=== PATIENT | female | born 1990 | race Hispanic/Latino ===

== ENCOUNTER 2018-04-27 08:07 | Emergency (ER) | payer OTHER ==
[2018-04-27 08:54] LABS: APPEARANCE,URINE Clear (CLEAR); BILIRUBIN,URINE Negative (NEGATIVE); COLOR,URINE Yellow (YELLOW); GLUCOSE, URINE (UA) Negative (NEGATIVE); KETONES,URINE Negative (NEGATIVE); LEUKOCYTE ESTERASE ,URINE Negative (NEGATIVE); NITRATE,URINE Negative (NEGATIVE); OCCULT BLOOD,URINE Moderate (NEGATIVE); PH,URINE 5.5 (5.0-8.0); PROTEIN,URINE Negative (NEGATIVE)
[2018-04-27 08:56] LABS: HCG,QUAL RESULT NEGATIVE (NEGATIVE)
[2018-04-27 09:15] LABS: BACTERIA,URINE Few /HPF (None Seen); MUCUS,URINE Moderate LPF (None Seen); SQUAMOUS EPITHELIAL CELL,UR Few /HPF (0-2); WBC,URINE 0-1 /HPF (0-1)
[2018-04-27] MEDS ORDERED: KETOROLAC TROMETHAMINE 30MG/ML ONE (09:51)
== END 2018-04-27 10:58 | disposition home or self-care (01) ==
LOC: EDH 08:07
DX: S00.83XA Contusion of other part of head, initial encounter (principal); S70.12XA Contusion of left thigh, initial encounter; S30.811A Abrasion of abdominal wall, initial encounter; N93.9 Abnormal uterine and vaginal bleeding, unspecified; Z98.51 Tubal ligation status; R04.0 Epistaxis; V53.6XXA Passenger in pick-up truck or van injured in collision with car, pick-up truck or van in traffic accident, initial encounter; Y93.89 Activity, other specified; Y92.89 Other specified places as the place of occurrence of the external cause; Y99.8 Other external cause status
CPT/HCPCS: 81001; 81025; 96372; 99284; J1885

== ENCOUNTER 2018-12-06 19:16 | Emergency (ER) | payer OTHER | END 2018-12-06 20:19 | disposition home or self-care (01) | LOC: EDH 19:16 | DX: J30.9 Allergic rhinitis, unspecified (principal); F41.9 Anxiety disorder, unspecified; F31.9 Bipolar disorder, unspecified; I10 Essential (primary) hypertension; E07.9 Disorder of thyroid, unspecified; F43.10 Post-traumatic stress disorder, unspecified; Z98.51 Tubal ligation status; Z72.0 Tobacco use | CPT/HCPCS: 99282 ==

== ENCOUNTER 2019-10-01 03:52 | Emergency (ER) | payer BC, OTHER ==
[2019-10-01] MEDS ORDERED: ONDANSETRON HCL 4 MG/2 ML VIAL ONE (04:03)
[2019-10-01 04:04] LABS: BASOPHILS % (AUTO) 0.2 % (0.0-5.0); EOSINOPHILS % (AUTO) 2.5 % (0.0-8.0); HEMATOCRIT 38.4 % (36-48); MEAN CORPUSCULAR HEMOGLOBIN 29.9 pg (27.0-33.0); MEAN CORPUSCULAR HGB CONC 33.7 g/dL (32.0-36.0); MEAN CORPUSCULAR VOLUME 88.9 fL (79-99); MONOCYTES % (AUTO) 4.7 % (3.0-13.0); NEUTROPHILS % (AUTO) 73.6 % (40.0-77.0); PLATELET COUNT (AUTO) 311 K/uL (130-400); RED BLOOD CELL COUNT(AUTO) 4.32 MIL/uL (4.00-5.50); WHITE BLOOD COUNT (AUTO) 13.9 K/uL (4.8-10.8)
[2019-10-01] MEDS ORDERED: FAMOTIDINE/PF 20 MG/2 ML VIAL IV ONE (04:04)
[2019-10-01] MEDS ORDERED: SODIUM CHLORIDE 0.9% 1000ML 1,000 ML IV ONE (04:04)
[2019-10-01 04:14] LABS: POTASSIUM 3.6 mmol/L (3.5-5.1)
[2019-10-01 04:19] LABS: ALBUMIN 3.2 g/dL (3.5-5.0); BILIRUBIN,TOTAL 0.2 mg/dL (0.2-1.0); TOTAL PROTEIN, SERUM 7.1 g/dL (6.0-8.3)
[2019-10-01] MEDS ORDERED: MAG HYDROX/AL HYDROX/SIMETH ES 30 ML SUSP UDCUP ONE (05:09)
[2019-10-01] MEDS ORDERED: LIDOCAINE HCL 2% VISCOUS 15 ML UDCUP ONE (05:09)
[2019-10-01 05:36] LABS: APPEARANCE,URINE Clear (CLEAR); BILIRUBIN,URINE Negative (NEGATIVE); COLOR,URINE Yellow (YELLOW); GLUCOSE, URINE (UA) Negative (NEGATIVE); KETONES,URINE Negative (NEGATIVE); LEUKOCYTE ESTERASE ,URINE Negative (NEGATIVE); NITRATE,URINE Negative (NEGATIVE); OCCULT BLOOD,URINE Negative (NEGATIVE); PROTEIN,URINE Negative (NEGATIVE)
== END 2019-10-01 05:53 | disposition home or self-care (01) ==
LOC: EDH 03:52
DX: K29.70 Gastritis, unspecified, without bleeding (principal); I10 Essential (primary) hypertension; K21.9 Gastro-esophageal reflux disease without esophagitis
CPT/HCPCS: 36415; 80053; 81003; 81025; 83690; 85025; 96361; 96374; 96375; 99285; J2405; J3490; J7030

== ENCOUNTER 2020-02-24 13:17 | Emergency (ER) | payer BC | END 2020-02-24 14:31 | disposition home or self-care (01) | LOC: EDH 13:17 | DX: J06.9 Acute upper respiratory infection, unspecified (principal); I10 Essential (primary) hypertension; K21.9 Gastro-esophageal reflux disease without esophagitis ==

== ENCOUNTER 2020-05-05 22:26 | Emergency (ER) | payer BC | END 2020-05-06 00:05 | disposition home or self-care (01) | LOC: EDH 22:26 | DX: Z77.098 Contact with and (suspected) exposure to other hazardous, chiefly nonmedicinal, chemicals (principal); I10 Essential (primary) hypertension; K21.9 Gastro-esophageal reflux disease without esophagitis; Z79.899 Other long term (current) drug therapy | CPT/HCPCS: 71045 ==

== ENCOUNTER 2021-11-12 20:19 | Emergency (ER) | payer BC, OTHER ==
[~2021-11-12] VITALS: Ht 162.6 cm; Wt 99.8 kg
[2021-11-12] MEDS ORDERED: ONDANSETRON 4MG INJ IVP ONE (21:00)
[2021-11-12] MEDS ORDERED: FAMOTIDINE 20MG VIAL IV ONE (21:00)
[2021-11-12] MEDS ORDERED: 0.9%NACL 1000ML 1,000 ML IV ONE (21:00)
[2021-11-12] MEDS ORDERED: PANTOPRAZOLE 40 MG/VIAL IVP ONE (21:00)
[2021-11-12] MEDS ORDERED: METOCLOPRAMIDE 10 MG/2 ML VIAL IVP ONE (21:00)
[2021-11-12 21:06] LABS: BASOPHILS % (AUTO) 0.2 % (0.0-5.0); EOSINOPHILS % (AUTO) 1.4 % (0.0-8.0); HEMATOCRIT 37.2 % (36-48); MEAN CORPUSCULAR HEMOGLOBIN 30.6 pg (27.0-33.0); MEAN CORPUSCULAR HGB CONC 33.1 g/dL (32.0-36.0); MEAN CORPUSCULAR VOLUME 92.5 fL (79-99); MONOCYTES % (AUTO) 6.1 % (3.0-13.0); PLATELET COUNT (AUTO) 319 K/uL (130-400); RED BLOOD CELL COUNT(AUTO) 4.02 MIL/uL (4.00-5.50); WHITE BLOOD COUNT (AUTO) 13.1 K/uL (4.8-10.8)
[2021-11-12 21:08] LABS: APPEARANCE,URINE Cloudy (CLEAR); BILIRUBIN,URINE Negative (NEGATIVE); COLOR,URINE Yellow (YELLOW); GLUCOSE, URINE (UA) Negative (NEGATIVE); KETONES,URINE Trace mg/dL (NEGATIVE); LEUKOCYTE ESTERASE ,URINE Trace (NEGATIVE); NITRATE,URINE Negative (NEGATIVE); OCCULT BLOOD,URINE Large (NEGATIVE); PH,URINE 5.5 (5.0-8.0); PROTEIN,URINE Trace mg/dL (NEGATIVE); UROBILINOGEN,URINE 0.2 mg/dL (0.2-1.0)
[2021-11-12 21:16] LABS: BACTERIA,URINE Few /HPF (None Seen); MUCUS,URINE Moderate LPF (None Seen); RBC,URINE 26-50 /HPF (0-1); SQUAMOUS EPITHELIAL CELL,UR Moderate /HPF (0-2)
[2021-11-12 21:17] LABS: CREATININE 1.1 mg/dL (0.5-1.5)
[2021-11-12 21:21] LABS: ALBUMIN 3.8 g/dL (3.5-5.0); BILIRUBIN,TOTAL 0.3 mg/dL (0.2-1.0); TOTAL PROTEIN, SERUM 7.8 g/dL (6.0-8.3)
[2021-11-12] MEDS ORDERED: PANT40TA PO (21:55)
[2021-11-12] MEDS ORDERED: DICY20TA2 PO (21:55)
[2021-11-12] MEDS ORDERED: ONDA4TAB10 PO (21:55)
[2021-11-12] MEDS ORDERED: METO-296 PO (21:55)
[2021-11-12 22:07] VITALS: BP 133/72
== END 2021-11-12 23:30 | disposition home or self-care (01) ==
LOC: EDH 20:19
DX: K29.70 Gastritis, unspecified, without bleeding (principal); E86.9 Volume depletion, unspecified; Z79.899 Other long term (current) drug therapy; Z98.51 Tubal ligation status
CPT/HCPCS: 36415; 80053; 81001; 83690; 85025; 96374; 96375; 99284; C9113; J2405; J2765; J3490

== ENCOUNTER 2025-01-31 07:26 | Emergency (ER) | payer SELFPAY ==
[~2025-01-31] VITALS: Ht 162.6 cm; Wt 109.0 kg
[~2025-01-31 07:26] MED LIST: DICY20TA2 PO; METO-296 PO; ONDA-243 PO; PANT40TA PO
[2025-01-31 07:31] VITALS: BP 127/82; PULSE 102; RESP 18; TEMP 97.8; O2SAT 96
[2025-01-31] MEDS ORDERED: LORA-726 PO (07:52)
[2025-01-31] MEDS ORDERED: FLUT16H NS (07:52)
--- NOTE | 2025-01-31 07:52 | ERN ---
General Chief Complaint: Cough Stated Complaint: COUGH X 3 WEEKS Time Seen by MD: 07:30 Source: patient History of Present Illness Initial Comments IN HIS IS A 34-YEAR-OLD FEMALE COMING IN TO BE EVALUATED FOR COUGH. PER PATIENT SHE HAS BEEN HAVING A COUGH FOR THREE WEEKS. NO FEVER OR CHILLS. PATIENT HAD NOT BEEN SEEN BY HER PCP. Allergies: Coded Allergies: No Known Drug Allergies (Unverified Allergy, Unknown, 11/12/21) Home Meds Active Scripts Metoclopramide HCl (Reglan) 10 Mg Tablet, 10 MG PO TIDP, #20 TAB 0 Refills Prov:LAUREEN PACHECO MD 11/12/21 Ondansetron (Ondansetron Odt) 4 Mg Tab.rapdis, 4 MG PO Q6HPRN, #20 TAB 0 Refills Prov:LAUREEN PACHECO MD 11/12/21 Pantoprazole Sodium (Protonix) 40 Mg Tablet.dr, 40 MG PO DAILY, #10 TAB 0 Refills Prov:LAUREEN PACHECO MD 11/12/21 Dicyclomine HCl (Bentyl) 20 Mg Tab, 20 MG PO Q6HPRN, #20 TAB 0 Refills Prov:LAUREEN PACHECO MD 11/12/21 Past Medical History Past Medical History: Gallstones, Hypertension, Hyperthyroid, Other Medical History Other: GALLSTONES Past Surgical History: None Social History Social History: Drugs, ETOH Female( History) LMP: Jan 20, 2025 ROS Dictation CONSTITUTIONAL: NO CHILLS, NO FEVER, NO WEAKNESS, NO DIAPHORESIS, NO MALAISE. HEAD/FACE: NO SIGNS OF TRAUMA. EENT: NO EYE PAIN, NO BLURRED VISION, NO TEARING, NO DOUBLE VISION, NO EAR PAIN, NO EAR DISCHARGE, NO NOSE PAIN, NASAL CONGESTION, NO THROAT PAIN, NO THROAT SWELLING, NO MOUTH PAIN. RESPIRATORY: NO COUGH, NO ORTHOPNEA, NO SOB, NO STRIDOR, NO WHEEZING. CARDIOVASCULAR: NO CHEST PAIN, NO EDEMA, NO PALPITATIONS, NO SYNCOPE. GASTROINTESTINAL/ABDOMINAL: NO ABDOMINAL PAIN, NO CONSTIPATION, NO DIARRHEA, NO NAUSEA, NO VOMITING. GENITOURINARY: NO ABNORMAL DISCHARGE, NO DYSURIA, NO FREQUENT URINATION, NO HEMATURIA. NO COMPLAINTS OF PAIN IN THE GENITALS. MUSCULOSKELETAL: NO BACK PAIN, NO GOUT, NO JOINT PAIN, NO JOINT SWELLING, NO MUSCLE PAIN, NO MUSCLE STIFFNESS, NO NECK PAIN. INTEGUMENTARY: NO CHANGE IN COLOR, NO CHANGE IN HAIR/NAILS, NO DRYNESS, NO LESION, NO LUMPS, NO RASH. NEUROLOGICAL/PSYCH: NO ANXIETY, NOT DEPRESSED, NO EMOTIONAL PROBLEM, NO HEADACHE, NO NUMBNESS, NO PRE-EXISTING DEFICIT, NO HISTORY OF SEIZURES, NO TREMORS, NO WEAKNESS. HEMATOLOGIC/LYMPHATIC: NOT ANEMIC, NO HISTORY OF BLOOD CLOTS, NO APPARENT BLEEDING, NO BRUISING, GLANDS NOT SWOLLEN. ALL SYSTEMS NEGATIVE, EXCEPT NOTED. Physical Exam Physical Exam Dictation VITAL SIGNS: REVIEWED. GENERAL APPEARANCE: ALERT, ORIENTED X3, NO ACUTE DISTRESS, OBESE. HEAD AND FACE: NON-TRAUMATIC. EYES: PERRL, PINK CONJUNCTIVAS, EYELID NO TRAUMA, ANTERIOR CHAMBER CLEAR. EARS: PINNAS INTACT AND NO SIGNS OF TRAUMA OR ERYTHEMA. EAR CANALS CLEAR AND NO DISCHARGE. TMS NO ERYTHEMA. NOSE: NO DISCHARGE, NO BLEEDING. BILATERAL NASAL TURBINATE SWELLING OROPHARYNX: MOUTH NORMAL, TEETH NO CARIES, TONGUE PINK. PHARYNX CLEAR, NO ERYTHEMA. TONSILS NO EXUDATES, NO ABSCESSES NOTED. MUCOUS MEMBRANE MOIST. NECK: SUPPLE, NON-TENDER, NO THYROMEGALY, NO MASSES, NO JVD, NO BRUITS. BREAST: DEFERRED. CHEST: NO TENDERNESS, NO CREPITUS, NO PARADOXICAL MOVEMENT, NO RETRACTIONS. LUNGS: CLEAR, WELL-VENTILATED, SYMMETRIC, NO RALES, NO WHEEZING, NO RHONCHI, NO STRIDOR, GOOD BREATH SOUNDS BILATERALLY. HEART: REGULAR RATE, REGULAR RHYTHM, NO MURMUR, NO GALLOPS. VASCULAR: NO PERIPHERAL EDEMA. ABDOMEN: SOFT, POSITIVE BOWEL SOUNDS, NONDISTENDED, NO GUARDING, NONTENDER, NO REBOUND, NO MASSES NO HEPATOMEGALY, NO SPLENOMEGALY, NO MANUEL'S SIGN, NO HERNIAS. RECTAL: DEFERRED. GENITAL: DEFERRED. NEUROLOGICAL: NORMAL SPEECH, GROSS MOTOR FUNCTION INTACT, GROSS SENSORY FUNCTION INTACT. MUSCULOSKELETAL: NECK NONTENDER, FULL RANGE OF MOTION, BACK NONTENDER, FULL RANGE OF MOTION. EXTREMITIES: NONTENDER, FULL RANGE OF MOTION. SKIN: COLOR PINK, DRY, NO TURGOR, NO RASH, NO LACERATIONS, NO ABRASIONS, NO CONTUSIONS. LYMPHATICS: DEFERRED. Results Laboratory and Microbiology Labs Reviewed?: Yes MDM MDM: DIFFERENTIAL DIAGNOSIS: SINUSITIS, COUGH, URI, PATIENT IS A 34-YEAR-OLD FEMALE COMING IN TO BE EVALUATED FOR COUGH. PATIENT STATES THAT THE COUGH HAS BEEN ONGOING FOR THREE WEEKS. ON PHYSICAL EXAM LUNGS ARE CLEAR NASAL TURBINATE SWELLING BILATERAL OROPHARYNGEAL COBBLESTONING SUGGESTIVE OF SINUSITIS. PATIENT WILL BE DISCHARGED WITH A DIAGNOSIS OF SINUSITIS I DID ADVISED HER APPROPRIATE FOLLOW UP WITH PCP AND OR ENT FOR LONG- TERM MANAGEMENT. ED Course Vital Signs Date Time Temp Pulse Resp B/P (MAP) Pulse Ox O2 Delivery O2 Flow Rate FiO2 01/31/25 07:31 97.9 102 18 127/82 96 Room Air* 0 21 01/31/25 07:27 97.9 102 20 127/82 96 Room Air 0 DX & DISP Disposition: Discharge Departure Impression: Primary Impression: Sinusitis Condition: Stable Scripts Loratadine/Pseudoephedrine (Loratadine-D 12 Hour Tablet) 5 Mg-120 Mg Tab.er.12h 1 TAB PO BID for 5 Days, #10 TAB 0 Refills Prov: SHANNON CRAIG MD 01/31/25 Fluticasone Propionate (Flonase Nasal [place]) 50 Mcg/Actuation [place] 2 SPRAY NS DAILY, #16 GM 0 Refills Prov: SHANNON CRAIG MD 01/31/25 Additional Instructions: FOLLOW-UP WITH PRIMARY CARE PROVIDER IN 1 TO 2 DAYS. TAKE MEDICATIONS DIRECTED HERE IN THE EMERGENCY ROOM. OKAY TO CONTINUE HOME MEDICATIONS UNLESS OTHERWISE DISCUSSED DURING YOUR VISIT IN THE EMERGENCY ROOM TODAY. RETURN TO YOUR NEAREST EMERGENCY ROOM IF SYMPTOMS WORSEN OR IF THERE IS NO IMPROVEMENT. CALL 911 IF YOU NEED IMMEDIATE ASSISTANCE. TAKE TYLENOL [id number] NEEDED AND IF NO CONTRAINDICATIONS ARE PRESENT. INCREASE ORAL HYDRATION. A WOUND CULTURE OR URINE CULTURE WAS ORDERED HERE IN THE EMERGENCY ROOM DEPARTMENT PLEASE FOLLOW-UP WITH PRIMARY CARE PROVIDER AND ADVISE THEM TO GET REPEAT PORTS FROM OUR FACILITY. IF YOU HAD ANY LISA WRAP/SPLINTS THAT WERE APPLIED HERE, PLEASE DO NOT REMOVE THEM UNTIL YOU SEE YOUR PRIMARY CARE OR SPECIALTY. REFERRALS: Referrals: NONE (PCP) LUIZA BHATT MD,LOCO Mendez MD Time of Disposition: 07:50 SHANNON CRAIG MD Jan 31, 2025 07:52
== END 2025-01-31 08:09 | disposition home or self-care (01) ==
LOC: EDH 07:26
DX: J32.9 Chronic sinusitis, unspecified (principal); I10 Essential (primary) hypertension; E03.9 Hypothyroidism, unspecified; Z79.899 Other long term (current) drug therapy
CPT/HCPCS: 99283

== ENCOUNTER 2025-11-07 10:11 | Inpatient (IN) | payer SELFPAY ==
[~2025-11-07] VITALS: Ht 162.6 cm; Wt 110.0 kg
[2025-11-07] VITALS (21 sets, daily range): BP systolic 103–135; BP diastolic 47–79; PULSE 77–97; RESP 18–22; TEMP 97.1–98.2; O2SAT 99
[~2025-11-07 10:11] MED LIST changes: +FLUT16H NS; +LORA-726 PO
--- NOTE | 2025-11-07 10:25 | ERN ---
ED Note History of Present Illness Stated Complaint: ABDOMINAL PAIN Chief Complaint: Abdominal Pain Time Seen by MD: 10:15 Dictation: PATIENT IS A 35-YEAR-OLD FEMALE COMING IN TODAY WITH INTERMITTENT AND ACHY RIGHT LOWER QUADRANT PAIN TENDERNESS WITH FEVER CHILLS NAUSEA FOR THE LAST 7-8 DAYS. NO CHANGE IN URINATION NO FLANK PAIN. SHE STATES SHE SAW HER PRIMARY CARE DOCTOR LAST WEEK SUNDAY AND HE ORDERED AN ULTRASOUND OF HER ABDOMEN HOWEVER SHE NEVER GOT THE RESULTS ON-CALL. HE DID NOT GIVE HER ANYTHING FOR PAIN. Allergies: Coded Allergies: No Known Drug Allergies (Unverified Allergy, Unknown, 11/12/21) Home Meds Active Scripts Loratadine/Pseudoephedrine (Loratadine-D 12 Hour Tablet) 5 Mg-120 Mg Tab.er.12h, 1 TAB PO BID for 5 Days, #10 TAB 0 Refills Prov:SHANNON CRAIG MD 01/31/25 Fluticasone Propionate (Flonase Nasal [place]) 50 Mcg/Actuation [place], 2 SPRAY NS DAILY, #16 GM 0 Refills Prov:SHANNON CRAIG MD 01/31/25 Metoclopramide HCl (Reglan) 10 Mg Tablet, 10 MG PO TIDP, #20 TAB 0 Refills Prov:LAUREEN PACHECO MD 11/12/21 Ondansetron (Ondansetron Odt) 4 Mg Tab.rapdis, 4 MG PO Q6HPRN, #20 TAB 0 Refills Prov:LAUREEN PACHECO MD 11/12/21 Pantoprazole Sodium (Protonix) 40 Mg Tablet.dr, 40 MG PO DAILY, #10 TAB 0 Refills Prov:LAUREEN PACHECO MD 11/12/21 Dicyclomine HCl (Bentyl) 20 Mg Tab, 20 MG PO Q6HPRN, #20 TAB 0 Refills Prov:LAUREEN PACHECO MD 11/12/21 Past Medical History Past Medical History: Gallstones, Hypertension, Hyperthyroid, Other Additional Past Medical Hx: GALLSTONES Surgical History: None Social History: Drugs, ETOH RN Note Reviewed/Agreed w/PFSH: Yes (CONSTITUTIONAL: NEGATIVE EXCEPT FOR HPIHEAD/FACE: NEGATIVE EXCEPT FOR HPIEENT: NEGATIVE EXCEPT FOR HPIRESPIRATORY: NEGATIVE EXCEPT FOR HPIGASTROINTESTINAL/ABDOMINAL: NEGATIVE EXCEPT FOR HPIGENITOURINARY: NEGATIVE EXCEPT FOR HPIMUSCULOSKELETAL: NEGATIVE EXCEPT FOR HPIINTEGUMENTARY: NEGATIVE EXCEPT FOR HPINEUROLOGICAL/PSYCH: NEGATIVE EXCEPT FOR HPIHEMATOLOGIC/LYMPHATIC: NEGATIVE EXCEPT FOR HPIALL SYSTEMS NEGATIVE, EXCEPT NOTED ABOVE.13 POINT REVIEW OF SYSTEMS ASSESSED AND ALL NEGATIVE EXCEPT FOR ABOVE.) Review of System Dictation CONSTITUTIONAL: NEGATIVE EXCEPT FOR HPI HEAD/FACE: NEGATIVE EXCEPT FOR HPI EENT: NEGATIVE EXCEPT FOR HPI RESPIRATORY: NEGATIVE EXCEPT FOR HPI GASTROINTESTINAL/ABDOMINAL: NEGATIVE EXCEPT FOR HPI RIGHT LOWER QUADRANT PAIN WITH NAUSEA GENITOURINARY: NEGATIVE EXCEPT FOR HPI MUSCULOSKELETAL: NEGATIVE EXCEPT FOR HPI INTEGUMENTARY: NEGATIVE EXCEPT FOR HPI NEUROLOGICAL/PSYCH: NEGATIVE EXCEPT FOR HPI HEMATOLOGIC/LYMPHATIC: NEGATIVE EXCEPT FOR HPI ALL SYSTEMS NEGATIVE, EXCEPT NOTED ABOVE. 13 POINT REVIEW OF SYSTEMS ASSESSED AND ALL NEGATIVE EXCEPT FOR ABOVE. Initial Vital Sign VS Vital Signs Date Time Temp Pulse Resp B/P (MAP) Pulse Ox O2 Delivery O2 Flow Rate FiO2 11/07/25 10:13 98.1 111 20 133/81 98 Room Air 11/07/25 11:49 0 21 Physical Exam Dictation VITAL SIGNS REVIEWED GENERAL APPEARANCE: ALERT, ORIENTED X 3, N MODERATE ACUTE DISTRESS, WELL DEVELOPED, NOURISHED. OBESE HEAD AND FACE: NON-TRAUMATIC. EYES: PERRL, PINK CONJUNCTIVAS, EYELID NO TRAUMA, ANTERIOR CHAMBER WITH ARCUS SENILIS. EARS: PINNAS INTACT AND NO SIGNS OF TRAUMA OR ERYTHEMA EAR CANALS CLEAR AND NO DISCHARGE TM NO ERYTHEMA NOSE: NO DISCHARGE, NO BLEEDING. OROPHARYNX: MOUTH NORMAL, TONGUE PINK, PHARYNX CLEAR,NO ERYTHEMA, TONSILS NO EXUDATES, NO ABSCESSES NOTED, MUCOUS MEMBRANE MOIST NECK: SUPPLE, NON-TENDER, NO THYROMEGALY, NO MASSES, NO JVD, NO BRUITS BREAST:DEFERRED CHEST:NO TENDERNESS, NO CREPITUS, NO PARADOXICAL MOVEMENT, NO RETRACTIONS LUNGS:CLEAR, WELL-VENTILATED, SYMMETRIC, NO RALES, NO WHEEZING, NO RHONCHI, NO STRIDOR, GOOD BREATH SOUNDS BILATERALLY HEART: REGULAR RATE, REGULAR RHYTHM, NO MURMUR, NO GALLOPS VASCULAR: NO PERIPHERAL EDEMA, A RIGHT LOWER QUADRANT PAIN WITH REBOUND TENDERNESS. NEGATIVE CVAT BILATERALLY RECTAL: DEFERRED GENITAL: DEFERRED NEUROLOGICAL: NORMAL SPEECH, MOTOR FUNCTION INTACT, SENSORY FUNCTION INTACT MUSCULOSKELETAL: NECK NONTENDER, FULL RANGE OF MOTION, BACK NONTENDER, FULL RANGE OF MOTION, EXTREMITIES: NONTENDER, FULL RANGE OF MOTION SKIN: COLOR PINK, DRY, NO TURGOR, NO RASH, NO LACERATIONS, NO ABRASIONS, NO CONTUSIONS. LYMPHATIC: DEFERRED Results (Laboratory/Radiology) Laboratory/Radiology Laboratory Tests Test 11/07/25 10:20 11/07/25 10:30 Urine Color YELLOW (YELLOW) Urine Appearance CLEAR (CLEAR) Urine pH 5.5 (5.0-8.0) Urine Specific [place] 1.024 (1.001-1.031) Urine Protein 10 mg/dL (NEGATIVE) H Urine Glucose (UA) NEGATIVE mg/dL (NEGATIVE) Urine Ketones NEGATIVE mg/dL (NEGATIVE) Urine Occult Blood SMALL (NEGATIVE) H Urine Nitrate NEGATIVE (NEGATIVE) Urine Bilirubin NEGATIVE mg/dL (NEGATIVE) Urine Urobilinogen 0.2 mg/dL (0.2-1.0) Urine Leukocyte Esterase NEGATIVE Shaun/uL Urine RBC 2-5 /HPF (0-1) H Urine WBC 0-1 /HPF (0-1) Urine Squamous Epithelial Cells RARE /HPF (0-2) Urine Bacteria RARE /HPF (None Seen) White Blood Count 18.7 K/uL (4.8-10.8) H Red Blood Count 4.17 MIL/uL (4.00-5.50) Hemoglobin 12.2 g/dL (12.0-16.0) Hematocrit 37.5 % (36-48) Mean Corpuscular Volume 89.9 fL (79-99) Mean Corpuscular Hemoglobin 29.3 pg (27.0-33.0) Mean Corpuscular Hemoglobin Concent 32.5 g/dL (32.0-36.0) Red Cell Distribution Width 12.5 % (11.0-15.5) Platelet Count 249 K/uL (130-400) Mean Platelet Volume 10.9 fL (7.5-10.5) H Immature Granulocyte % (Auto) 0.4 % (0-1) Neutrophils (%) (Auto) 79.3 % (40.0-77.0) H Lymphocytes (%) (Auto) 13.6 % (21.0-51.0) L Monocytes (%) (Auto) 6.1 % (3.0-13.0) Eosinophils (%) (Auto) 0.4 % (0.0-8.0) Basophils (%) (Auto) 0.2 % (0.0-5.0) Neutrophils # (Auto) 14.8 K/uL (1.8-7.7) H Lymphocytes # (Auto) 2.6 K/uL (1.0-4.8) Monocytes # (Auto) 1.1 K/uL (0.1-1.0) H Eosinophils # (Auto) 0.08 K/uL (0.00-0.70) Basophils # (Auto) 0.03 K/uL (0.00-0.20) Absolute Immature Granulocyte (auto 0.08 K/uL (0-1) Nucleated Red Blood Cells 0.0 % (0.0-0.19) Sodium Level 137 mmol/L (136-145) Potassium Level 4.0 mmol/L (3.5-5.1) Chloride Level 103 mmol/L (101-111) Carbon Dioxide Level 26 mmol/L (21-32) Blood Urea Nitrogen 10 mg/dL (7-18) Creatinine 0.9 mg/dL (0.5-1.0) Glomerular Filtration Rate Calc 86 mL/min (>90) Random Glucose 105 mg/dL (70-105) Lactic Acid Level 1.2 mmol/L (0.8-2.5) Total Calcium 8.9 mg/dL (8.5-10.1) Serum Test, Qualitative NEGATIVE (NEGATIVE) IDNEYS, URETERS, AND BLADDER: The kidneys appear within normal limits. There is no hydronephrosis or hydroureter. No urinary calculi are seen. STOMACH AND BOWEL: Unremarkable appearance of the stomach and bowel. No evidence of bowel obstruction. No evidence suggesting enteritis or colitis. APPENDIX: Hyperemic and thickened (12 mm) appendix with adjacent inflammatory stranding, consistent with acute appendicitis. PERITONEUM: Small amount of free fluid. No free air or fluid collection. LYMPH NODES: No lymphadenopathy is evident. REPRODUCTIVE: Unremarkable as visualized. VASCULATURE: No evidence of abdominal aortic aneurysm. BONES: No aggressive appearing osseous lesion. No acute osseous pathology evident. IMPRESSION: 1. Hyperemic and thickened (12 mm) appendix with adjacent inflammatory stranding, consistent with acute appendicitis. 2. Small amount of free fluid. No free air or fluid collection. /[place] Labs Reviewed?: Yes ED Course ED Course Orders Procedure Category Date Status Time Testing, LAB 11/07/25 Complete Serum Hcg 10:22 Cbc With Differential LAB 11/07/25 Complete 10:22 Urinalysis Profile LAB 11/07/25 Complete 10:22 0.9%Nacl 1000ml (Ns PHA 11/07/25 Complete 1000ml) 10:30 Morphine 2mg Syg PHA 11/07/25 Complete (Morphine 2mg Syg) 10:30 Ondansetron 4mg Inj PHA 11/07/25 Complete (Zofran 4mg Inj) 10:30 Basic Metabolic Panel LAB 11/07/25 Complete 10:22 Blood Cult YAEL 11/07/25 In Process 10:22 Lactic Acid LAB 11/07/25 Complete 10:22 Ct Abdomen/Pelvis CT 11/07/25 Resulted W/Contrast 10:22 Iohexol (Omnipaque) PHA 11/07/25 Complete 11:15 Zosyn 3.375gm+Ns 50ml PHA 11/07/25 In Process (Zosyn 3.375gm+Ns 13:30 Nothing By Mouth DIET 11/07/25 Transmitted Lunch General Surgery CONPHYSVC 11/07/25 Transmitted Consult 13:18 Current Medications Medications (Trade) Dose Ordered Sig/Lea Route PRN Reason Start Time Stop Time Status Last Admin Dose Admin Iohexol (Omnipaque) 75 ml STK-MED ONCE IV 11/07/25 11:15 11/07/25 11:15 DC Morphine Sulfate (morPHINE 2MG SYG) 2 mg ONCE ONCE IVP 11/07/25 10:30 11/07/25 10:31 DC 11/07/25 11:43 Ondansetron HCl (zoFRAN 4MG INJ) 4 mg ONCE ONCE IVP 11/07/25 10:30 11/07/25 10:31 DC 11/07/25 11:43 Piperacillin Sod/ Tazobactam Sod (Zosyn 3.375gm+NS 50ml) 3.375 gm ONCE ONCE IVPB 11/07/25 13:30 11/07/25 13:31 Sodium Chloride 1,000 ml @ 0 mls/hr ONCE ONCE IV 11/07/25 10:30 11/07/25 10:31 DC 11/07/25 11:43 Vital Signs Date Time Temp Pulse Resp B/P (MAP) Pulse Ox O2 Delivery O2 Flow Rate FiO2 11/07/25 13:15 98.1 89 20 120/65 98 Room Air* 0 21 11/07/25 11:49 89 20 131/81 98 Room Air* 0 21 11/07/25 10:13 98.1 111 20 133/81 98 Room Air 1310/SPOKE WITH THE AVIONICS MANAGER AT [facility] TO HAVE CT REPORT EXPEDITED.1320/ 1320/SPOKE WITH PATIENT SHE IS AWARE SHE HAS A ACUTEB APPENDICITIS AND I SPOKE WITH DR. DEGROOT, HE WILL DO PATIENT SURGERY THIS AFTERNOON.1325/ 1325/SPOKE WITH , was reviewed CT labs and interventions for acute s appendicitis he agreed to admit Medical Decision Making MDM MDM: Differential diagnosis: Acute appendicitis/diverticulitis/heard in his/electrolyte imbalance/dehydration/ectopic /UTI Rationale: Tests considered and ordered secondary to shared decision making include: labs, ECG and radiology Previous outside records reviewed: Old ER visi moderate Medications-Per medication reconciliation Need for hospitalization: Patient does meet criteria for hospitalization. Patient will be admission for emergent appendectomy this afternoon Need for emergency major/minor surgery: Emergent appendectomy There are no social concerns with this patient. Prescription drug management Prescriptions will include symptomatic care Patient's prior external medical records from other ER visits were reviewed by me as indicated. Prior testing and results from previous visits were reviewed. Prior tests were taken into account with medical decision making and resource utilization, independent historian/historians were used to obtain complete medical history. I independently interpreted the test that were performed, results were reviewed by me and considered findings on radiology if ordered. Medical management and examination interpretation discussions were had by me with other qualified healthcare professionals as indicated for the patient's care. DX & DISP Disposition: Inpatient Decision to Admit Time: 13:26 Departure Impression: Primary Impression: Acute appendicitis Condition: Stable Referrals: SELF,REFERRAL (PCP) Time of Disposition: 13:26 I have reviewed the case, and I agree with, Diagnosis and Plan ARAM DELVALLE Nov 07, 2025 10:25
--- NOTE | 2025-11-07 10:28 | NUR ---
PENDING GFR & TEST RESULTS, IV SITE, & CONSENT FOR CT EXAM.
[2025-11-07 10:40] LABS: IMMATURE GRANULOCYTE ABSOLUTE 0.08 K/uL (0-1); NUCLEATED RED BLOOD CELLS 0.0 % (0.0-0.19); PLATELET COUNT (AUTO) 249 K/uL (130-400); RED BLOOD CELL COUNT(AUTO) 4.17 MIL/uL (4.00-5.50); RED CELL DISTRIBUTION WIDTH 12.5 % (11.0-15.5); WHITE BLOOD COUNT (AUTO) 18.7 K/uL (4.8-10.8)
[2025-11-07 10:49] LABS: APPEARANCE,URINE CLEAR (CLEAR); GLUCOSE, URINE (UA) NEGATIVE (NEGATIVE); LEUKOCYTE ESTERASE ,URINE NEGATIVE Leu/uL (NEGATIVE); NITRATE,URINE NEGATIVE (NEGATIVE); OCCULT BLOOD,URINE SMALL (NEGATIVE)
[2025-11-07 10:58] LABS: ADD UA MICROSCOPIC YES
[2025-11-07 11:10] LABS: SQUAMOUS EPITHELIAL CELL,UR RARE /HPF (0-2)
[2025-11-07] MEDS ORDERED: IOHEXOL-350 75 ML VIAL IV ONE (11:15)
[2025-11-07 11:31] LABS: CREATININE 0.9 mg/dL (0.5-1.0); GLOMERULAR FILTR. RATE CALC 86.0 mL/min (>90); GLUCOSE,RANDOM 105.0 mg/dL (70-105); SODIUM SERUM 137.0 mmol/L (136-145); UREA NITROGEN, BLOOD 10.0 mg/dL (7-18)
[2025-11-07] MEDS: 0.9%NACL 1000ML 1,000 ML IV ONE (11:43)
--- NOTE | 2025-11-07 13:12 | HMCIMG ---
EXAM: CT Abdomen and Pelvis with IV contrast CLINICAL HISTORY: RIGHT LOWER QUADRANT PAIN WITH TACHYCARDIA FEVER TECHNIQUE: Axial computed tomography images of the abdomen and pelvis with intravenous contrast. CONTRAST: with intravenous contrast. COMPARISON: None provided. FINDINGS: LUNG BASES: The lung bases appear clear. No pleural effusions are seen. LIVER: Unremarkable. GALLBLADDER AND BILE DUCTS: The gallbladder appears within normal limits. No radioopaque gallstones are seen. No biliary ductal dilatation is evident. PANCREAS: Unremarkable. SPLEEN: Unremarkable. ADRENAL GLANDS: Unremarkable. KIDNEYS, URETERS, AND BLADDER: The kidneys appear within normal limits. There is no hydronephrosis or hydroureter. No urinary calculi are seen. STOMACH AND BOWEL: Unremarkable appearance of the stomach and bowel. No evidence of bowel obstruction. No evidence suggesting enteritis or colitis. APPENDIX: Hyperemic and thickened (12 mm) appendix with adjacent inflammatory stranding, consistent with acute appendicitis. PERITONEUM: Small amount of free fluid. No free air or fluid collection. LYMPH NODES: No lymphadenopathy is evident. REPRODUCTIVE: Unremarkable as visualized. VASCULATURE: No evidence of abdominal aortic aneurysm. BONES: No aggressive appearing osseous lesion. No acute osseous pathology evident. IMPRESSION: 1. Hyperemic and thickened (12 mm) appendix with adjacent inflammatory stranding, consistent with acute appendicitis. 2. Small amount of free fluid. No free air or fluid collection. /[place]
[2025-11-07] MEDS: ZOSYN 3.375GM +NS 50ML IVPB ONE (13:41)
--- NOTE | 2025-11-07 13:47 | HP ---
[facility] Date of Service: Nov 07, 2025 Time of Service: 13:47 HISTORY OF PRESENT ILLNESS: 35-year-old female with no significant past medical history who presented to the hospital secondary to abdominal pain. Patient states her abdominal pain started around 4-5 days ago and primarily located in the right lower quadrant. Her pain got worse yesterday and she had episodes of nausea and vomiting at home. She denied any changes in her bowel movement and denied any changes in her urination. She Noted fever, chills at home. She had seen her primary care provider last week who had obtain the abdominal ultrasound. She did not receive any results on-call. Secondary to non improving pain patient thereafter came to the hospital for further evaluation. She denies any cardiac history. Denied any chest pain, shortness of breath. Labs Were notable for white count of 18.7, hemoglobin was 12.2, platelet count was 249 K, sodium was 137, potassium was 4.0, creatinine was 0.9, serum was negative. Patient underwent a CT abdomen pelvis which showed findings concerning for acute appendicitis. There was small amount of free fluid in the abdomen. General surgery was consulted in the ER who recommended patient to remain NPO for now. Tentative plan for surgery today. REVIEW OF SYSTEMS CONSTITUTIONAL: Denies night sweats. No unintentional weight loss reported. Positive for fever, chills NEUROLOGICAL: Denies headache, amaurosis fugax, motor weakness, sensory deficit, vertigo/spinning sensation, gait abnormalities, or tremors. ENT: No hearing loss, otalgia, otorrhea, rhinitis, rhinorrhea, hoarseness, or sore throat. CARDIOVASCULAR: Denies any exertional angina, dyspnea on exertion, orthopnea, paroxysmal nocturnal dyspnea, palpitations, life-threatening arrhythmias, claudication. PULMONARY: Denies any shortness of breath, cough, phlegm/sputum, hemoptysis, pleuritic chest pain. GASTROINTESTINAL: Positive for abdominal pain, nausea, vomiting. Denied any diarrhea, constipation, melena, hematochezia, hematemesis GENITOURINARY: Denies frequency, urgency, nocturia, hematuria or incontinence (Storage/Irritative symptoms.) Low urinary stream, straining to void, urinary intermittency or hesitancy, splitting of the voiding stream, terminal dribbling. ENDOCRINOLOGIC: Denies polyuria, polydipsia, polyphagia or heat/cold intolerances. HEMATOLOGIC: Denies thrombophilia/previous clots, or coagulopathy/bleeding di sorders. ONCOLOGIC: Denies personal history of malignancy. DERMATOLOGIC: Denies rashes or pruritus. PSYCHIATRIC: Denies any suicidal or homicidal ideation. Denies hallucinations. PAST MEDICAL HISTORY: No significant past medical history PAST SURGICAL HISTORY: Denied any previous surgical history PAST SOCIAL HISTORY: Denied any smoking, alcohol, drug use FAMILY HISTORY: Denied any pertinent family history Coded Allergies: No Known Drug Allergies (Unverified Allergy, Unknown, 11/12/21) PHYSICAL EXAM GENERAL APPEARANCE: The patient is awake, alert, and oriented, in no acute cardiopulmonary distress. NEUROLOGICAL: Cranial nerves II-XII grossly intact. Motor is 5/5 in bilateral upper and lower extremities proximal to distal. No sensory deficits. HEENT: Face is symmetric. Pupils are equal and reactive. Extraocular movements are intact. NECK: Supple. No JVD. No thyromegaly. No submental, submandibular, pre- /postauricular, occipital or supraclavicular lymphadenopathy. CHEST: Normal chest expansion. No Telemetry. LUNGS: Absence of any rales, rhonchi or any wheezing. CARDIOVASCULAR: Regular. S1 and S2 normal. No appreciable rubs, murmurs or gallops. ABDOMEN: Soft, tenderness to palpation in the right lower quadrant. Abdomen is soft to palpation. No guarding present : Deferred. No Inman. EXTREMITIES: Non-edematous and not cyanotic. No clubbing. Good capillary refill. SKIN: No skin breakdown. Vital Sign (Last 24 Hours) 11/07/25 13:15 Temp 98.1 Pulse 89 Resp 20 B/P (MAP) 120/65 Pulse Ox 98 O2 Delivery Room Air* O2 Flow Rate 0 FiO2 21 LABS: Laboratory: Test 11/07/25 10:30 11/07/25 10:20 Range/Units White Blood Count 18.7 H 4.8-10.8 K/uL Red Blood Count 4.17 4.00-5.50 MIL/uL Hemoglobin 12.2 12.0-16.0 g/dL Hematocrit 37.5 36-48 % Mean Corpuscular Volume 89.9 79-99 fL Mean Corpuscular Hemoglobin 29.3 27.0-33.0 pg Mean Corpuscular Hemoglobin Concent 32.5 32.0-36.0 g/dL Red Cell Distribution Width 12.5 11.0-15.5 % Platelet Count 249 130-400 K/uL Mean Platelet Volume 10.9 H 7.5-10.5 fL Immature Granulocyte % (Auto) 0.4 0-1 % Neutrophils (%) (Auto) 79.3 H 40.0-77.0 % Lymphocytes (%) (Auto) 13.6 L 21.0-51.0 % Monocytes (%) (Auto) 6.1 3.0-13.0 % Eosinophils (%) (Auto) 0.4 0.0-8.0 % Basophils (%) (Auto) 0.2 0.0-5.0 % Neutrophils # (Auto) 14.8 H 1.8-7.7 K/uL Lymphocytes # (Auto) 2.6 1.0-4.8 K/uL Monocytes # (Auto) 1.1 H 0.1-1.0 K/uL Eosinophils # (Auto) 0.08 0.00-0.70 K/uL Basophils # (Auto) 0.03 0.00-0.20 K/uL Absolute Immature Granulocyte (auto 0.08 0-1 K/uL Nucleated Red Blood Cells 0.0 0.0-0.19 % Sodium Level 137 136-145 mmol/L Potassium Level 4.0 3.5-5.1 mmol/L Chloride Level 103 101-111 mmol/L Carbon Dioxide Level 26 21-32 mmol/L Blood Urea Nitrogen 10 7-18 mg/dL Creatinine 0.9 0.5-1.0 mg/dL Glomerular Filtration Rate Calc 86 >90 mL/min Random Glucose 105 70-105 mg/dL Lactic Acid Level 1.2 0.8-2.5 mmol/L Total Calcium 8.9 8.5-10.1 mg/dL Serum Test, Qualitative NEGATIVE NEGATIVE Urine Color YELLOW YELLOW Urine Appearance CLEAR CLEAR Urine pH 5.5 5.0-8.0 Urine Specific Terry 1.024 1.001-1.031 Urine Protein 10 H NEGATIVE mg/dL Urine Glucose (UA) NEGATIVE NEGATIVE mg/dL Urine Ketones NEGATIVE NEGATIVE mg/dL Urine Occult Blood SMALL H NEGATIVE Urine Nitrate NEGATIVE NEGATIVE Urine Bilirubin NEGATIVE NEGATIVE mg/dL Urine Urobilinogen 0.2 0.2-1.0 mg/dL Urine Leukocyte Esterase NEGATIVE NEGATIVE Shaun/uL Urine RBC 2-5 H 0-1 /HPF Urine WBC 0-1 0-1 /HPF Urine Squamous Epithelial Cells RARE 0-2 /HPF Urine Bacteria RARE None Seen /HPF DIAGNOSTICS / RADIOLOGY: [ ] ASSESSMENT: Sepsis secondary to acute appendicitis POA (tachycardia, leukocytosis) Acute appendicitis Obesity BMI 41.2 PLAN: - patient to be admitted to medical-surgical unit -in reference to acute appendicitis. Patient will remain NPO for now. Patient will continue on IV Zosyn and IV fluids. General surgery has been consulted. Tentative plan for surgery today -follow up on blood cultures -patient will be on morphine and Toradol for pain control -further orders per hospitalization course. Advanced Care Planning Which of the following were discussed: Hospice care: Yes __ No _x_ Therapeutic options: Yes __ No __ Advance directives: Yes __ No __ Other discussions: Discussed with who?: patient (Patient, family or surrogates) Voluntary nature of this service was explained to the patient? Yes _x_ No __ Amount of time spent: 25 minutes INDIA Choi MD, MD Nov 07, 2025 13:47
[2025-11-07] MEDS ORDERED: PoTASSium chl 10% ELIXIR 20MEQ 20 MEQ/15 ML UDCUP PO PRN (14:00)
[2025-11-07] MEDS: 0.9%NACL 1000ML 1,000 ML IV SCH (14:25)
--- NOTE | 2025-11-07 14:26 | NUR ---
does not take any meds
[2025-11-07 14:42] LABS: INR 0.99 (0.85-1.15)
--- NOTE | 2025-11-07 15:11 | NUR ---
REPORT WAS CALLED TO RAPHAEL PINON ON THIRD FLOOR. DR. KNOX THEN CALLED THE FLOOR TO ADVISE THAT PT BE HELD DOWN IN ED SHE IS GOING TO THE OR FIRST. FLOOR WAS CALLED WITH UPDATE.
--- NOTE | 2025-11-07 15:47 | NUR ---
OR STAFF HERE FOR PT,PT WAS TAKEN TO OR FOR APPENDECTOMY WITH DR. KNOX
[2025-11-07] MEDS ORDERED: PROMETHAZINE HCL 25 MG/ML 1ML AMPULE IM PRN (17:00)
[2025-11-07] MEDS ORDERED: MIDAZOLAM HCL 1 MG/ML 2ML VIAL ONE (17:19)
[2025-11-07] MEDS ORDERED: SUCCINYLCHOLINE CHLORIDE 20 MG/ML 10 ML VIAL ONE (17:32)
[2025-11-07] MEDS ORDERED: 0.9%NACL 10ML VIAL ONE (17:45)
--- NOTE | 2025-11-07 18:38 | OP ---
Operative Note: DATE OF PROCEDURE: 11/07/25 SURGEON: NU KNOX MD BOOK SORTER: [] ANESTHESIA: [] GENERAL ANESTHESIOLOGIST/TEXTILE WORKER: [] PREOPERATIVE DIAGNOSIS: [] Acute appendicitis POSTOPERATIVE DIAGNOSIS: [] Acute perforated appendicitis SYNOPSIS: [] PROCEDURE: [] Laparoscopic appendectomy ESTIMATED BLOOD LOSS: [] 50 cc INDICATIONS: [] DESCRIPTION OF PROCEDURE: []With the patient prepped and draped in usual fashion supraumbilical incision was done. Using direct technique I was able to place a balloon trocar and abdomen insufflated. Two 5 mm trochars were inserted under direct vision in the lower abdomen. Immediately we identified an inflamed appendix and there was a phlegmon in that area. When we did dissected the phlegmon bluntly it clearly was the perforation was purulence.A a window was created in the base and the appendix. Using a laparoscopic 45 mm ELIO white stapler I transected the base of appendix. I used a reload to transect the mesoappendix. In the omentum that was attached to the appendix. The appendix was placed in a bag. After adequate hemostasis and irrigation in the area I placed a Ernie-Silver 10 that was brought out through the supraumbilical trocar insertion site. I have proposed the other trocar under direct vision and the appendix through the supraumbilical incision. We culture the appendix. The fascia was closed with the 0 Vicryl [id number]. All incisions were closed with staplers. I placed 20 cc of local. Patient tolerated procedure without complication NU KNOX MD Nov 07, 2025 18:38
[2025-11-07] MEDS ORDERED: 0.9%NACL 50ML IV SCH (20:00)
[2025-11-07] MEDS: ZOSYN 3.375GM +NS 50ML IVPB SCH (20:41)
[2025-11-07] MEDS: FAMOTIDINE 20MG VIAL IV SCH (20:41)
[2025-11-08] VITALS (8 sets, daily range): BP systolic 105–138; BP diastolic 42–79; PULSE 82–103; RESP 17–20; TEMP 97.9–98.7; O2SAT 98
[2025-11-08 05:28] LABS: IMMATURE GRANULOCYTE ABSOLUTE 0.08 K/uL (0-1); NUCLEATED RED BLOOD CELLS 0.0 % (0.0-0.19); PLATELET COUNT (AUTO) 213 K/uL (130-400); RED BLOOD CELL COUNT(AUTO) 3.55 MIL/uL (4.00-5.50); RED CELL DISTRIBUTION WIDTH 12.3 % (11.0-15.5); WHITE BLOOD COUNT (AUTO) 18.7 K/uL (4.8-10.8)
[2025-11-08 05:40] LABS: CREATININE 0.8 mg/dL (0.5-1.0); GLOMERULAR FILTR. RATE CALC 99.0 mL/min (>90); GLUCOSE,RANDOM 127.0 mg/dL (70-105); SODIUM SERUM 137.0 mmol/L (136-145); UREA NITROGEN, BLOOD 8.0 mg/dL (7-18)
[2025-11-08] MEDS: PoTASSium chloRIDE 20MEQ ER 20 MEQ ERTAB PO PRN (06:00)
--- NOTE | 2025-11-08 11:22 | PN ---
[facility] PROGRESS NOTE Date of Service: Nov 08, 2025 Time of Service: 11:21 SUBJECTIVE: 11/08 patient remains admitted to the medical floor, underwent appendectomy 11/07/2025, she feels weak, passing gas but no bowel. Hemodynamically stable, afebrile, saturating normal on room air. Hemoglobin 10.5, hematocrit 31.1, WBC of 18.7. Patient currently on Zosyn IV. Continue to follow a.m. labs. Follow surgical input recommendation. REVIEW OF SYSTEMS CONSTITUTIONAL: Denies night sweats. No unintentional weight loss reported. Positive for fever, chills NEUROLOGICAL: Denies headache, amaurosis fugax, motor weakness, sensory deficit, vertigo/spinning sensation, gait abnormalities, or tremors. ENT: No hearing loss, otalgia, otorrhea, rhinitis, rhinorrhea, hoarseness, or sore throat. CARDIOVASCULAR: Denies any exertional angina, dyspnea on exertion, orthopnea, paroxysmal nocturnal dyspnea, palpitations, life-threatening arrhythmias, claudication. PULMONARY: Denies any shortness of breath, cough, phlegm/sputum, hemoptysis, pleuritic chest pain. GASTROINTESTINAL: Positive for abdominal pain, nausea, vomiting. Denied any diarrhea, constipation, melena, hematochezia, hematemesis GENITOURINARY: Denies frequency, urgency, nocturia, hematuria or incontinence (Storage/Irritative symptoms.) Low urinary stream, straining to void, urinary intermittency or hesitancy, splitting of the voiding stream, terminal dribbling. ENDOCRINOLOGIC: Denies polyuria, polydipsia, polyphagia or heat/cold intolerances. HEMATOLOGIC: Denies thrombophilia/previous clots, or coagulopathy/bleeding disorders. ONCOLOGIC: Denies personal history of malignancy. DERMATOLOGIC: Denies rashes or pruritus. PSYCHIATRIC: Denies any suicidal or homicidal ideation. Denies hallucinations. PHYSICAL EXAM GENERAL APPEARANCE: The patient is awake, alert, and oriented, in no acute cardiopulmonary distress. NEUROLOGICAL: Cranial nerves II-XII grossly intact. Motor is 5/5 in bilateral upper and lower extremities proximal to distal. No sensory deficits. HEENT: Face is symmetric. Pupils are equal and reactive. Extraocular movements are intact. NECK: Supple. No JVD. No thyromegaly. No submental, submandibular, pre-/postauricular, occipital or supraclavicular lymphadenopathy. CHEST: Normal chest expansion. No Telemetry. LUNGS: Absence of any rales, rhonchi or any wheezing. CARDIOVASCULAR: Regular. S1 and S2 normal. No appreciable rubs, murmurs or gallops. ABDOMEN: Soft, tenderness to palpation in the right lower quadrant. Abdomen is soft to palpation. No guarding present : Deferred. No Inman. EXTREMITIES: Non-edematous and not cyanotic. No clubbing. Good capillary refill. SKIN: No skin breakdown. Vital Signs (last 8hr) Date Time Temp Pulse Resp B/P (MAP) Pulse Ox O2 Delivery O2 Flow Rate FiO2 11/08/25 08:25 97.9 82 18 115/70 97 Room Air 11/08/25 04:00 98.4 86 17 119/66 98 Nasal Cannula 2.0 LABS: Laboratory: Test 11/08/25 05:17 11/07/25 10:30 11/07/25 10:20 Range/Units White Blood Count 18.7 H 4.8-10.8 K/uL Red Blood Count 3.55 L 4.00-5.50 MIL/uL Hemoglobin 10.5 L 12.0-16.0 g/dL Hematocrit 31.1 L 36-48 % Mean Corpuscular Volume 87.6 79-99 fL Mean Corpuscular Hemoglobin 29.6 27.0-33.0 pg Mean Corpuscular Hemoglobin Concent 33.8 32.0-36.0 g/dL Red Cell Distribution Width 12.3 11.0-15.5 % Platelet Count 213 130-400 K/uL Mean Platelet Volume 10.4 7.5-10.5 fL Immature Granulocyte % (Auto) 0.4 0-1 % Neutrophils (%) (Auto) 86.4 H 40.0-77.0 % Lymphocytes (%) (Auto) 7.8 L 21.0-51.0 % Monocytes (%) (Auto) 5.3 3.0-13.0 % Eosinophils (%) (Auto) 0.0 0.0-8.0 % Basophils (%) (Auto) 0.1 0.0-5.0 % Neutrophils # (Auto) 16.1 H 1.8-7.7 K/uL Lymphocytes # (Auto) 1.5 1.0-4.8 K/uL Monocytes # (Auto) 1.0 0.1-1.0 K/uL Eosinophils # (Auto) 0.00 0.00-0.70 K/uL Basophils # (Auto) 0.02 0.00-0.20 K/uL Absolute Immature Granulocyte (auto 0.08 0-1 K/uL Nucleated Red Blood Cells 0.0 0.0-0.19 % White Cell Morphology Comment See comments Sodium Level 137 136-145 mmol/L Potassium Level 3.8 3.5-5.1 mmol/L Chloride Level 104 101-111 mmol/L Carbon Dioxide Level 23 21-32 mmol/L Blood Urea Nitrogen 8 7-18 mg/dL Creatinine 0.8 0.5-1.0 mg/dL Glomerular Filtration Rate Calc 99 >90 mL/min Random Glucose 127 H 70-105 mg/dL Total Calcium 8.1 L 8.5-10.1 mg/dL Prothrombin Time 10.5 9.6-11.6 SEC Prothromb Time International Ratio 0.99 0.85-1.15 Activated Partial Thromboplast Time 28.4 26.3-35.5 SEC Hemoglobin A1c 5.3 4.0-6.0 % Estimated Average Glucose (eAG) 105 70-126 mg/dL Lactic Acid Level 1.2 0.8-2.5 mmol/L C-Reactive Protein, Quantitative 102.00 H 0.5-3.0 mg/L Serum Test, Qualitative NEGATIVE NEGATIVE Urine Color YELLOW YELLOW Urine Appearance CLEAR CLEAR Urine pH 5.5 5.0-8.0 Urine Specific Yale 1.024 1.001-1.031 Urine Protein 10 H NEGATIVE mg/dL Urine Glucose (UA) NEGATIVE NEGATIVE mg/dL Urine Ketones NEGATIVE NEGATIVE mg/dL Urine Occult Blood SMALL H NEGATIVE Urine Nitrate NEGATIVE NEGATIVE Urine Bilirubin NEGATIVE NEGATIVE mg/dL Urine Urobilinogen 0.2 0.2-1.0 mg/dL Urine Leukocyte Esterase NEGATIVE NEGATIVE Shaun/uL Urine RBC 2-5 H 0-1 /HPF Urine WBC 0-1 0-1 /HPF Urine Squamous Epithelial Cells RARE 0-2 /HPF Urine Bacteria RARE None Seen /HPF Current Medications Medications (Trade) Dose Ordered Sig/Lea Route PRN Reason Start Time Stop Time Status Last Admin Dose Admin Acetaminophen (acetaMINOPHEN 1,000MG/100ML) 1,000 mg NOW IVPB 11/07/25 19:00 11/07/25 23:30 DC 11/07/25 18:56 1,000 MG Famotidine (Pepcid 20mg Vial) 20 mg BID IV 11/07/25 21:00 12/07/25 20:59 11/08/25 08:58 20 MG Fentanyl Citrate (FENTanyl CITRate PF 50 MCG/ 1 ML 2ML VIAL) 25 mcg Q5MIN PRN IVP PAIN LEVEL 7 TO 10 11/07/25 17:00 11/07/25 19:41 DC Ketorolac Tromethamine (toRADol) 15 mg Q6H PRN IV MODERATE PAIN (4-6) 11/07/25 14:00 11/12/25 13:59 11/08/25 04:34 15 MG Ketorolac Tromethamine (toRADol) 30 mg AD PRN IV PAIN LEVEL 1 TO 3 11/07/25 17:00 11/07/25 19:41 DC Metoclopramide HCl (regLAN 10MG IV) 10 mg AD PRN IVP NAUSEA/VOMITING 11/07/25 17:00 11/07/25 19:41 DC Morphine Sulfate (morPHINE 2MG SYG) 2 mg AD PRN IVP PAIN LEVEL 4 TO 6 11/07/25 17:00 11/07/25 19:41 DC Morphine Sulfate (morPHINE 2MG SYG) 2 mg Q6H PRN IVP SEVERE PAIN (7-10) 11/07/25 14:00 11/14/25 13:59 11/08/25 08:59 2 MG Naloxone HCl (NARcan 0.4mg/1 mL) 0.1 mg AD PRN IVP RESPIRATORY SYMPTOMS 11/07/25 23:55 11/07/25 19:41 DC Ondansetron HCl (zoFRAN 4MG INJ) 4 mg AD PRN IVP NAUSEA/VOMITING 11/07/25 17:00 11/07/25 19:41 DC Ondansetron HCl (zoFRAN 4MG INJ) 4 mg Q6H PRN IVP NAUSEA/VOMITING 11/07/25 14:00 12/07/25 13:59 Piperacillin Sod/ Tazobactam Sod (Zosyn 3.375gm+NS 50ml) 3.375 gm ZOSY8 IVPB 11/07/25 21:00 11/17/25 20:59 11/08/25 08:58 3.375 GM Potassium Chloride 100 ml @ 100 mls/hr AD PRN IV POTASSIUM PROTOCOL 11/07/25 14:00 12/07/25 13:59 Potassium Chloride (K-Dur/Klor-Con 20meq) 20 meq AD PRN PO POTASSIUM PROTOCOL 11/07/25 14:00 12/07/25 13:59 11/08/25 08:58 20 MEQ Potassium Chloride (KCl 10% Elixir 20meq/15ml) 20 meq AD PRN PO POTASSIUM PROTOCOL 11/07/25 14:00 12/07/25 13:59 Promethazine HCl (Phenergan) 25 mg AD PRN IM NAUSEA/VOMITING 11/07/25 17:00 11/07/25 19:41 DC Sodium Chloride 1,000 ml @ 100 mls/hr Q10H IV 11/07/25 14:00 12/07/25 13:59 11/07/25 14:25 100 MLS/HR Sodium Chloride (NS 50ml) 50 ml AD IV 11/07/25 20:00 11/07/25 13:52 DC DIAGNOSTICS / RADIOLOGY: [ ] ASSESSMENT: Sepsis secondary to acute appendicitis POA (tachycardia, leukocytosis) Acute appendicitis status post appendectomy 11/07/2025 Obesity BMI 41.2 PLAN: patient remains admitted to the medical floor, underwent appendectomy 11/07/2025, she feels weak, passing gas but no bowel. Hemodynamically stable, afebrile, saturating normal on room air. Hemoglobin 10.5, hematocrit 31.1, WBC of 18.7. Patient currently on Zosyn IV. Continue to follow a.m. labs. Follow surgical input recommendation. NEURO: Minimize central acting medications as possible. Fall Precautions. Well lighted room through the day and minimize interruptions through the night to prevent acute delirium. PULMONARY: Supplemental 02 as needed BiPAP as necessary, for respiratory distress Titrate Fio2 to keep Spo2 > or = 90% DuoNebs and CPT as needed IS hourly while awake for pulmonary hygiene prn Out of bed to chair as tolerated Maintain aspiration precautions at all times CARDIOVASCULAR: Follow hemodynamics. Vital signs per facility protocol GI & NUTRITION: Continue nutritional support Aspirations precautions Prokinetic agents and laxatives as needed KIDNEYS & ELECTROLYTES: Strict monitoring of intake and output Daily weights Avoid nephrotoxic agents Monitor electrolytes and replace as needed Goal urine output of 30mL/hr or 0.5mL/kg/hr Medications to be dosed according to renal function. Avoid contrast if possible ENDOCRINE: Maintain blood glucose between 100-180 at all times. Insulin sliding scale for blood glucose management Hypoglycemia and hyperglycemia protocol in place INFECTIOUS DISEASE: Trend temperature, WBC and procalcitonin level Follow cultures, deescalate antibiotics as soon as possible. Panculture if new onset fever HEMATOLOGY & COAGULATION: Monitor H&H. Keep Hgb > 7 Transfuse 1 unit of PRBC for Hgb < 7 Transfuse 1 pack of platelets of platelets < 20, 000 Watch for any signs and symptoms of bleeding SKIN: Pressure ulcer prevention per facility protocol Specialty mattress as needed ORTHO/REHAB Continue PT/OT PRN: MEDICATIONS Tylenol 650 mg po every 4 hrs for fever zofran 4 mg IV every 6 hrs for n/v Hydralazine 5 mg IV every 4 hrs systolic pressure > 160 bowel regiment: lactulose 20 gm PO BID PRN constipation Supportive measures: Continue GI and DVT prophylaxis Disposition: Pending improvement in clinical condition All questions answered time spent: > 35 min SUSAN WAGNER MD Nov 08, 2025 11:22
--- NOTE | 2025-11-08 20:16 | PN ---
GENERAL SURGERY PROGRESS NOTE Date/Time Patient Seen: [ 11/08/2025 16:30] Interval History: 35-year-old female, postop day 1., laparoscopic appendectomy with perforation by Dr. Loera Patient with a expected soreness over surgical incisions Patient has had 2 episodes of vomiting today Patient states she has been passing gas Patient has not been ambulating at all today Output from NATALIIA has been 130 cc of sanguinous output since this morning WBCs 18.7 H&H 10.5 and 31.1 ] Current Medications Medications (Trade) Dose Ordered Sig/Lea Route Start Time Stop Time Status Last Admin Dose Admin Acetaminophen (acetaMINOPHEN 1,000MG/100ML) 1,000 mg NOW IVPB 11/07/25 19:00 11/07/25 23:30 DC 11/07/25 18:56 1,000 MG Famotidine (Pepcid 20mg Vial) 20 mg BID IV 11/07/25 21:00 12/07/25 20:59 11/08/25 08:58 20 MG Piperacillin Sod/ Tazobactam Sod (Zosyn 3.375gm+NS 50ml) 3.375 gm ZOSY8 IVPB 11/07/25 21:00 11/17/25 20:59 11/08/25 08:58 3.375 GM Sodium Chloride 1,000 ml @ 100 mls/hr Q10H IV 11/07/25 14:00 12/07/25 13:59 11/08/25 10:00 100 MLS/HR Sodium Chloride (NS 50ml) 50 ml AD IV 11/07/25 20:00 11/07/25 13:52 DC Physical Examination: GENERAL: [No acute distress, female, resting in bed with family at bedside.] HEAD: [Normocephalic.] EYES: [Normal conjunctiva l.] ENT: [Hearing grossly intact.] NECK: [Supple.] LUNGS: [Clear breath sounds bilaterally.] HEART: [Normal rate and rhythm.] VASC: [Peripheral pulses +2 bilaterally.] ABD: [Bowel sounds normal, soft, Surgical dressings dry and intact, NATALIIA drain sutured in place with sanguinous output, no guarding or rigidity.] : [Not examined] EXT: [No edema.] SKIN: [No rashes or lesions noted.] NEURO: [Awake, alert, and oriented x3. No focal sensory or strength deficits noted.] Vital Signs (last 8hr) Date Time Temp Pulse Resp B/P (MAP) Pulse Ox O2 Delivery O2 Flow Rate FiO2 11/08/25 16:03 98.1 98 20 130/72 96 Room Air Laboratory: [ ] Hematology Labs: Test 11/08/25 05:17 Range/Units White Blood Count 18.7 H 4.8-10.8 K/uL Red Blood Count 3.55 L 4.00-5.50 MIL/uL Hemoglobin 10.5 L 12.0-16.0 g/dL Hematocrit 31.1 L 36-48 % Mean Corpuscular Volume 87.6 79-99 fL Mean Corpuscular Hemoglobin 29.6 27.0-33.0 pg Mean Corpuscular Hemoglobin Concent 33.8 32.0-36.0 g/dL Red Cell Distribution Width 12.3 11.0-15.5 % Platelet Count 213 130-400 K/uL Mean Platelet Volume 10.4 7.5-10.5 fL Immature Granulocyte % (Auto) 0.4 0-1 % Neutrophils (%) (Auto) 86.4 H 40.0-77.0 % Lymphocytes (%) (Auto) 7.8 L 21.0-51.0 % Monocytes (%) (Auto) 5.3 3.0-13.0 % Eosinophils (%) (Auto) 0.0 0.0-8.0 % Basophils (%) (Auto) 0.1 0.0-5.0 % Neutrophils # (Auto) 16.1 H 1.8-7.7 K/uL Lymphocytes # (Auto) 1.5 1.0-4.8 K/uL Monocytes # (Auto) 1.0 0.1-1.0 K/uL Eosinophils # (Auto) 0.00 0.00-0.70 K/uL Basophils # (Auto) 0.02 0.00-0.20 K/uL Absolute Immature Granulocyte (auto 0.08 0-1 K/uL Nucleated Red Blood Cells 0.0 0.0-0.19 % White Cell Morphology Comment See comments Chemistry Labs: Test 11/08/25 05:17 11/07/25 10:30 Range/Units Sodium Level 137 136-145 mmol/L Potassium Level 3.8 3.5-5.1 mmol/L Chloride Level 104 101-111 mmol/L Carbon Dioxide Level 23 21-32 mmol/L Blood Urea Nitrogen 8 7-18 mg/dL Creatinine 0.8 0.5-1.0 mg/dL Glomerular Filtration Rate Calc 99 >90 mL/min Random Glucose 127 H 70-105 mg/dL Total Calcium 8.1 L 8.5-10.1 mg/dL Hemoglobin A1c 5.3 4.0-6.0 % Estimated Average Glucose (eAG) 105 70-126 mg/dL Lactic Acid Level 1.2 0.8-2.5 mmol/L C-Reactive Protein, Quantitative 102.00 H 0.5-3.0 mg/L Serum Test, Qualitative NEGATIVE NEGATIVE Coagulation Labs: Test 11/07/25 10:30 Range/Units Prothrombin Time 10.5 9.6-11.6 SEC Prothromb Time International Ratio 0.99 0.85-1.15 Activated Partial Thromboplast Time 28.4 26.3-35.5 SEC Diagnostics / Radiology: [Copy/Paste Echos/Imaging Report here] Impression and Plan: [ 35-year-old female, postop day 1., laparoscopic appendectomy with perforation by Dr. Loera Patient has had 2 episodes of vomiting today, we will keep patient NPO for now Reglan 10 mg IV q.6 hours Patient encouraged to start ambulating Continue with IV fluids and IV antibiotics May use abdominal binder Aggressive IS exercises Continue strict monitoring of output from NATALIIA drain Repeat labs in a.m. Surgical team will continue to follow Dr. Loera updated on patient's status Surgical case has been discussed with my supervising physician Plan of care was formulated and agreed upon We appreciate the hospitalist team for allowing us to participate in this patient's care Greater than 45 minutes spent examining patient, reviewing chart and working on documentation ] ATTESTATION BY PHYSICIAN I have seen and examined the patient. I reviewed the documentation, medical decision making, and treatment plan as noted by the mid-level provider above. I agree with the findings and plan of care. MD GIANCARLO ORTEGA [facility] Nov 08, 2025 20:16
[2025-11-09] VITALS (8 sets, daily range): BP systolic 119–130; BP diastolic 67–80; PULSE 86–94; RESP 17–20; TEMP 97.5–98.7; O2SAT 96–99
[2025-11-09 05:15] LABS: IMMATURE GRANULOCYTE ABSOLUTE 0.07 K/uL (0-1); NUCLEATED RED BLOOD CELLS 0.0 % (0.0-0.19); PLATELET COUNT (AUTO) 234 K/uL (130-400); RED BLOOD CELL COUNT(AUTO) 3.47 MIL/uL (4.00-5.50); RED CELL DISTRIBUTION WIDTH 12.6 % (11.0-15.5); WHITE BLOOD COUNT (AUTO) 14.9 K/uL (4.8-10.8)
[2025-11-09 05:47] LABS: ASPARTATE AMINOTRANSFERASE 16.0 U/L (10-37); CREATININE 0.9 mg/dL (0.5-1.0); GLOMERULAR FILTR. RATE CALC 86.0 mL/min (>90); GLUCOSE,RANDOM 103.0 mg/dL (70-105); SODIUM SERUM 139.0 mmol/L (136-145); TOTAL PROTEIN, SERUM 6.4 g/dL (6.0-8.3); UREA NITROGEN, BLOOD 13.0 mg/dL (7-18)
--- NOTE | 2025-11-09 06:00 | NUR ---
BM PATIENT HAS HAD 3 BM'S, HYPERACTIVE BOWEL SOUNDS. DENIES PAIN, AMBULATING IN ROOM, AND TO BATHROOM.
--- NOTE | 2025-11-09 11:00 | NUR ---
DCP:HOME Pt currently lives at home with her mom. Pt denies any DME, home health, or provider services. Pt states that she is able to complete ADLs independently. PCP is Nando Chun from [facility] (also sees psych) and uses [facility] for any RX needs. At DC pt will want to go home and family can assist with transportation.
--- NOTE | 2025-11-09 12:05 | PN ---
[facility] PROGRESS NOTE Date of Service: Nov 09, 2025 Time of Service: 12:02 SUBJECTIVE: 11/08 patient remains admitted to the medical floor, underwent appendectomy 11/07/2025, she feels weak, passing gas but no bowel. Hemodynamically stable, afebrile, saturating normal on room air. Hemoglobin 10.5, hematocrit 31.1, WBC of 18.7. Patient currently on Zosyn IV. Continue to follow a.m. labs. Follow surgical input recommendation. 11/09 patient remains admitted to medical floor, comfortably in bed, alert oriented x3, passing gas but no bowel movement yet. Hemodynamically stable, afebrile, saturating normal on room air. Leukocytosis improving, WBC today 14.9, down from 18.7. Mild drop in hemoglobin to 10.2 from 12.2, with a hematocrit 30.7 from 37.5. Continue to follow surgical input and recommendation. Follow repeat CBC today, transfuse as needed. Follow a.m. labs. Discussed with the patient, in agreement. REVIEW OF SYSTEMS CONSTITUTIONAL: Denies night sweats. No unintentional weight loss reported. Positive for fever, chills NEUROLOGICAL: Denies headache, amaurosis fugax, motor weakness, sensory deficit, vertigo/spinning sensation, gait abnormalities, or tremors. ENT: No hearing loss, otalgia, otorrhea, rhinitis, rhinorrhea, hoarseness, or sore throat. CARDIOVASCULAR: Denies any exertional angina, dyspnea on exertion, orthopnea, paroxysmal nocturnal dyspnea, palpitations, life-threatening arrhythmias, claudication. PULMONARY: Denies any shortness of breath, cough, phlegm/sputum, hemoptysis, pleuritic chest pain. GASTROINTESTINAL: Positive for abdominal pain, nausea, vomiting. Denied any diarrhea, constipation, melena, hematochezia, hematemesis GENITOURINARY: Denies frequency, urgency, nocturia, hematuria or incontinence (Storage/Irritative symptoms.) Low urinary stream, straining to void, urinary intermittency or hesitancy, splitting of the voiding stream, terminal dribbling. ENDOCRINOLOGIC: Denies polyuria, polydipsia, polyphagia or heat/cold intolerances. HEMATOLOGIC: Denies thrombophilia/previous clots, or coagulopathy/bleeding disorders. ONCOLOGIC: Denies personal history of malignancy. DERMATOLOGIC: Denies rashes or pruritus. PSYCHIATRIC: Denies any suicidal or homicidal ideation. Denies hallucinations. PHYSICAL EXAM GENERAL APPEARANCE: The patient is awake, alert, and oriented, in no acute cardiopulmonary distress. NEUROLOGICAL: Cranial nerves II-XII grossly intact. Motor is 5/5 in bilateral upper and lower extremities proximal to distal. No sensory deficits. HEENT: Face is symmetric. Pupils are equal and reactive. Extraocular movements are intact. NECK: Supple. No JVD. No thyromegaly. No submental, submandibular, pre- /postauricular, occipital or supraclavicular lymphadenopathy. CHEST: Normal chest expansion. No Telemetry. LUNGS: Absence of any rales, rhonchi or any wheezing. CARDIOVASCULAR: Regular. S1 and S2 normal. No appreciable rubs, murmurs or gallops. ABDOMEN: Soft, tenderness to palpation in the right lower quadrant. Abdomen is soft to palpation. No guarding present : Deferred. No Inman. EXTREMITIES: Non-edematous and not cyanotic. No clubbing. Good capillary refill. SKIN: No skin breakdown. Vital Signs (last 8hr) Date Time Temp Pulse Resp B/P (MAP) Pulse Ox O2 Delivery O2 Flow Rate FiO2 11/09/25 08:00 98.2 91 20 127/80 96 Room Air LABS: Laboratory: Test 11/09/25 04:42 11/08/25 05:17 Range/Units White Blood Count 14.9 H 4.8-10.8 K/uL Red Blood Count 3.47 L 4.00-5.50 MIL/uL Hemoglobin 10.2 L 12.0-16.0 g/dL Hematocrit 30.7 L 36-48 % Mean Corpuscular Volume 88.5 79-99 fL Mean Corpuscular Hemoglobin 29.4 27.0-33.0 pg Mean Corpuscular Hemoglobin Concent 33.2 32.0-36.0 g/dL Red Cell Distribution Width 12.6 11.0-15.5 % Platelet Count 234 130-400 K/uL Mean Platelet Volume 11.5 H 7.5-10.5 fL Immature Granulocyte % (Auto) 0.5 0-1 % Neutrophils (%) (Auto) 76.2 40.0-77.0 % Lymphocytes (%) (Auto) 16.6 L 21.0-51.0 % Monocytes (%) (Auto) 5.9 3.0-13.0 % Eosinophils (%) (Auto) 0.5 0.0-8.0 % Basophils (%) (Auto) 0.3 0.0-5.0 % Neutrophils # (Auto) 11.4 H 1.8-7.7 K/uL Lymphocytes # (Auto) 2.5 1.0-4.8 K/uL Monocytes # (Auto) 0.9 0.1-1.0 K/uL Eosinophils # (Auto) 0.08 0.00-0.70 K/uL Basophils # (Auto) 0.04 0.00-0.20 K/uL Absolute Immature Granulocyte (auto 0.07 0-1 K/uL Nucleated Red Blood Cells 0.0 0.0-0.19 % Sodium Level 139 136-145 mmol/L Potassium Level 3.6 3.5-5.1 mmol/L Chloride Level 106 101-111 mmol/L Carbon Dioxide Level 23 21-32 mmol/L Blood Urea Nitrogen 13 7-18 mg/dL Creatinine 0.9 0.5-1.0 mg/dL Glomerular Filtration Rate Calc 86 >90 mL/min Random Glucose 103 70-105 mg/dL Total Calcium 8.1 L 8.5-10.1 mg/dL Magnesium Level 1.90 1.80-2.40 mg/dL Total Bilirubin 0.5 0.2-1.0 mg/dL Aspartate Amino Transf (AST/SGOT) 16 10-37 U/L Alanine Aminotransferase (ALT/SGPT) 33 12-78 U/L Alkaline Phosphatase 75 50-136 U/L Total Protein 6.4 6.0-8.3 g/dL Albumin 2.4 L 3.5-5.0 g/dL White Cell Morphology Comment See comments Current Medications Medications (Trade) Dose Ordered Sig/Lea Route PRN Reason Start Time Stop Time Status Last Admin Dose Admin Acetaminophen (acetaMINOPHEN 1,000MG/100ML) 1,000 mg NOW IVPB 11/07/25 19:00 11/07/25 23:30 DC 11/07/25 18:56 1,000 MG Famotidine (Pepcid 20mg Vial) 20 mg BID IV 11/07/25 21:00 12/07/25 20:59 11/09/25 08:05 20 MG Fentanyl Citrate (FENTanyl CITRate PF 50 MCG/ 1 ML 2ML VIAL) 25 mcg Q5MIN PRN IVP PAIN LEVEL 7 TO 10 11/07/25 17:00 11/07/25 19:41 DC Ketorolac Tromethamine (toRADol) 15 mg Q6H PRN IV MODERATE PAIN (4-6) 11/07/25 14:00 11/12/25 13:59 11/08/25 20:30 15 MG Ketorolac Tromethamine (toRADol) 30 mg AD PRN IV PAIN LEVEL 1 TO 3 11/07/25 17:00 11/07/25 19:41 DC Metoclopramide HCl (regLAN 10MG IV) 10 mg ACHS IVP 11/08/25 21:00 12/08/25 20:59 11/08/25 20:27 10 MG Metoclopramide HCl (regLAN 10MG IV) 10 mg AD PRN IVP NAUSEA/VOMITING 11/07/25 17:00 11/07/25 19:41 DC Morphine Sulfate (morPHINE 2MG SYG) 2 mg AD PRN IVP PAIN LEVEL 4 TO 6 11/07/25 17:00 11/07/25 19:41 DC Morphine Sulfate (morPHINE 2MG SYG) 2 mg Q6H PRN IVP SEVERE PAIN (7-10) 11/07/25 14:00 11/14/25 13:59 11/08/25 08:59 2 MG Naloxone HCl (NARcan 0.4mg/1 mL) 0.1 mg AD PRN IVP RESPIRATORY SYMPTOMS 11/07/25 23:55 11/07/25 19:41 DC Ondansetron HCl (zoFRAN 4MG INJ) 4 mg AD PRN IVP NAUSEA/VOMITING 11/07/25 17:00 11/07/25 19:41 DC Ondansetron HCl (zoFRAN 4MG INJ) 4 mg Q6H PRN IVP NAUSEA/VOMITING 11/07/25 14:00 12/07/25 13:59 11/08/25 18:06 4 MG Piperacillin Sod/ Tazobactam Sod (Zosyn 3.375gm+NS 50ml) 3.375 gm ZOSY8 IVPB 11/07/25 21:00 11/17/25 20:59 11/09/25 04:20 3.375 GM Potassium Chloride 100 ml @ 100 mls/hr AD PRN IV POTASSIUM PROTOCOL 11/07/25 14:00 12/07/25 13:59 Potassium Chloride (K-Dur/Klor-Con 20meq) 20 meq AD PRN PO POTASSIUM PROTOCOL 11/07/25 14:00 12/07/25 13:59 11/09/25 06:04 20 MEQ Potassium Chloride (KCl 10% Elixir 20meq/15ml) 20 meq AD PRN PO POTASSIUM PROTOCOL 11/07/25 14:00 12/07/25 13:59 Promethazine HCl (Phenergan) 25 mg AD PRN IM NAUSEA/VOMITING 11/07/25 17:00 11/07/25 19:41 DC Sodium Chloride 1,000 ml @ 100 mls/hr Q10H IV 11/07/25 14:00 12/07/25 13:59 11/08/25 22:49 100 MLS/HR Sodium Chloride (NS 50ml) 50 ml AD IV 11/07/25 20:00 11/07/25 13:52 DC DIAGNOSTICS / RADIOLOGY: [ ] ASSESSMENT: Sepsis secondary to acute appendicitis POA (tachycardia, leukocytosis) Acute appendicitis status post appendectomy 11/07/2025 Obesity BMI 41.2 PLAN: patient remains admitted to medical floor, comfortably in bed, alert oriented x3, passing gas but no bowel movement yet. Hemodynamically stable, afebrile, saturating normal on room air. Leukocytosis improving, WBC today 14.9, down from 18.7. Mild drop in hemoglobin to 10.2 from 12.2, with a hematocrit 30.7 from 37.5. Continue to follow surgical input and recommendation. Follow repeat CBC today, transfuse as needed. Follow a.m. labs. Discussed with the patient, in agreement. NEURO: Minimize central acting medications as possible. Fall Precautions. Well lighted room through the day and minimize interruptions through the night to prevent acute delirium. PULMONARY: Supplemental 02 as needed BiPAP as necessary, for respiratory distress Titrate Fio2 to keep Spo2 > or = 90% DuoNebs and CPT as needed IS hourly while awake for pulmonary hygiene prn Out of bed to chair as tolerated Maintain aspiration precautions at all times CARDIOVASCULAR: Follow hemodynamics. Vital signs per facility protocol GI & NUTRITION: Continue nutritional support Aspirations precautions Prokinetic agents and laxatives as needed KIDNEYS & ELECTROLYTES: Strict monitoring of intake and output Daily weights Avoid nephrotoxic agents Monitor electrolytes and replace as needed Goal urine output of 30mL/hr or 0.5mL/kg/hr Medications to be dosed according to renal function. Avoid contrast if possible ENDOCRINE: Maintain blood glucose between 100-180 at all times. Insulin sliding scale for blood glucose management Hypoglycemia and hyperglycemia protocol in place INFECTIOUS DISEASE: Trend temperature, WBC and procalcitonin level Follow cultures, deescalate antibiotics as soon as possible. Panculture if new onset fever HEMATOLOGY & COAGULATION: Monitor H&H. Keep Hgb > 7 Transfuse 1 unit of PRBC for Hgb < 7 Transfuse 1 pack of platelets of platelets < 20, 000 Watch for any signs and symptoms of bleeding SKIN: Pressure ulcer prevention per facility protocol Specialty mattress as needed ORTHO/REHAB Continue PT/OT PRN: MEDICATIONS Tylenol 650 mg po every 4 hrs for fever zofran 4 mg IV every 6 hrs for n/v Hydralazine 5 mg IV every 4 hrs systolic pressure > 160 bowel regiment: lactulose 20 gm PO BID PRN constipation Supportive measures: Continue GI and DVT prophylaxis Disposition: Pending improvement in clinical condition All questions answered time spent: > 35 min SUSAN WAGNER MD Nov 09, 2025 12:05
[2025-11-09 12:40] LABS: NUCLEATED RED BLOOD CELLS 0.0 % (0.0-0.19); PLATELET COUNT (AUTO) 230.0 K/uL (130-400); RED BLOOD CELL COUNT(AUTO) 3.33 MIL/uL (4.00-5.50); RED CELL DISTRIBUTION WIDTH 12.5 % (11.0-15.5); WHITE BLOOD COUNT (AUTO) 13.5 K/uL (4.8-10.8)
--- NOTE | 2025-11-09 13:00 | NUR ---
Discharge Update: S/P surgery for acute perforated appendicitis. WBC's are trending down. Pt. remains NPO. Did not tolerate diet.
--- NOTE | 2025-11-09 13:14 | CONS ---
INFECTIOUS DISEASE CONSULTATION NOTE Date of Service: Nov 09, 2025 Reason for Consultation: Leukocytosis. Requesting Physician: Dr. Herman Post. HISTORY OF PRESENT ILLNESS: This is a 35-year-old female patient with past medical history of hypertension a nd obesity who presented to the hospital for chief complaint of right lower quadrant abdominal pain accompanied by nausea or vomiting. A CT of the abdomen and pelvis done on admission showed findings consistent with acute appendicitis. General surgeon was consulted and patient underwent a laparoscopic appendectomy on 11/07/2025 with findings of a perforated appendix. Patient has remained afebrile postprocedure, the WBC however has remained elevated and the reason for this consult. Patient has been started on Zosyn IV every8 hours. We will continue Zosyn and add fluconazole IV. We will place midline and have case management [facility] for 14 days. We will follow up on the appendix abscess cultures results. REVIEW OF SYSTEMS CONSTITUTIONAL: Denies fever, chills, or fatigue. HEAD/FACE: No signs of trauma. EENT: Denies eye pain, blurred vision, double vision, or light sensitivity. RESPIRATORY: Denies shortness of breath, cough, wheezing CARDIOVASCULAR: Denies chest pain, palpitation, syncope GASTROINTESTINAL/ABDOMINAL: Right lower quadrant abdominal pain accompanied by nausea or vomiting, POA. GENITOURINARY: Denies dysuria or hematuria. MUSCULOSKELETAL: Denies joint pain, tenderness, or trauma. INTEGUMENTARY: Denies rash or itchiness NEUROLOGICAL/PSYCH: Denies anxiety, depression, heat or cold intolerance. PAST MEDICAL HISTORY: Morbid obesity. Hypertension, not on medication. Thyroid problems, pending final diagnosis from PCP. PAST SURGICAL HISTORY: Laser tubal ligation. PAST SOCIAL HISTORY: Denied current use of tobacco, alcohol or any other illicit drug. FAMILY HISTORY: Noncontributory. Coded Allergies: No Known Drug Allergies (Unverified Allergy, Unknown, 11/12/21) PHYSICAL EXAM EYES: Anicteric. Pupils equal and reactive. HENT: No oral thrush seen, moist Oral mucosa. NECK: Supple, no JVD or thyromegaly. LUNGS: Good air entry. No rales, no rhonchi. CARDIOVASCULAR: S1, S2 regular. No murmur heard. ABDOMEN: Soft, bowel sounds present. Tenderness on palpation. Surgical incisions. CENTRAL NERVOUS SYSTEM: Awake, alert, oriented x 3. SKIN: No rashes, no swelling. LYMPHATICS: No peripheral lymphadenopathy. MUSCULOSKELETAL: No joint swelling, erythema or tenderness. EXTREMITIES: No cyanosis or clubbing. BACK: No deformity, no pressure ulcer. GENITOURINARY: No dysuria or hematuria. Vital Sign (Last 24 Hours) 11/08/25 11/09/25 20:00 08:00 Temp 98.2 Pulse 91 Resp 20 B/P (MAP) 127/80 Pulse Ox 96 O2 Delivery Room Air O2 Flow Rate 0 FiO2 21 Intake & Output (last 24hrs) 11/08/25 11/08/25 11/09/25 15:00 23:00 07:00 Intake Total 300 ml 262.0 ml 350.0 ml Output Total 85 ml 45 ml 40 ml Balance 215 ml 217.0 ml 310.0 ml LABS: Laboratory: Test 11/09/25 12:33 11/09/25 04:42 11/08/25 05:17 Range/Units White Blood Count 13.5 H 4.8-10.8 K/uL Red Blood Count 3.33 L 4.00-5.50 MIL/uL Hemoglobin 9.9 L 12.0-16.0 g/dL Hematocrit 30.1 L 36-48 % Mean Corpuscular Volume 90.4 79-99 fL Mean Corpuscular Hemoglobin 29.7 27.0-33.0 pg Mean Corpuscular Hemoglobin Concent 32.9 32.0-36.0 g/dL Red Cell Distribution Width 12.5 11.0-15.5 % Platelet Count 230 130-400 K/uL Mean Platelet Volume 10.7 H 7.5-10.5 fL Nucleated Red Blood Cells 0.0 0.0-0.19 % Immature Granulocyte % (Auto) 0.5 0-1 % Neutrophils (%) (Auto) 76.2 40.0-77.0 % Lymphocytes (%) (Auto) 16.6 L 21.0-51.0 % Monocytes (%) (Auto) 5.9 3.0-13.0 % Eosinophils (%) (Auto) 0.5 0.0-8.0 % Basophils (%) (Auto) 0.3 0.0-5.0 % Neutrophils # (Auto) 11.4 H 1.8-7.7 K/uL Lymphocytes # (Auto) 2.5 1.0-4.8 K/uL Monocytes # (Auto) 0.9 0.1-1.0 K/uL Eosinophils # (Auto) 0.08 0.00-0.70 K/uL Basophils # (Auto) 0.04 0.00-0.20 K/uL Absolute Immature Granulocyte (auto 0.07 0-1 K/uL Sodium Level 139 136-145 mmol/L Potassium Level 3.6 3.5-5.1 mmol/L Chloride Level 106 101-111 mmol/L Carbon Dioxide Level 23 21-32 mmol/L Blood Urea Nitrogen 13 7-18 mg/dL Creatinine 0.9 0.5-1.0 mg/dL Glomerular Filtration Rate Calc 86 >90 mL/min Random Glucose 103 70-105 mg/dL Total Calcium 8.1 L 8.5-10.1 mg/dL Magnesium Level 1.90 1.80-2.40 mg/dL Total Bilirubin 0.5 0.2-1.0 mg/dL Aspartate Amino Transf (AST/SGOT) 16 10-37 U/L Alanine Aminotransferase (ALT/SGPT) 33 12-78 U/L Alkaline Phosphatase 75 50-136 U/L Total Protein 6.4 6.0-8.3 g/dL Albumin 2.4 L 3.5-5.0 g/dL White Cell Morphology Comment See comments DIAGNOSTICS / RADIOLOGY: PATIENT: KATERIN VILLAFANA MR#: [id number] : 1990 SEX: F AGE: 35 LOCATION: [facility] ORDER 1024 STATUS: ADM IN REPORT#: [id number] SERVICE 1022 REASON: RIGHT LOWER QUADRANT PAIN WITH TACHYCARDIA FEVER ORDERING PHYSICIAN: ARAM DELVALLE BASKET SORTER PROCEDURE: ABD PEL W - CT ABDOMEN/PELVIS W/CONTRAST ADDENDUM REPORT ADDENDUM: Results were shared by telephone at 02:16 PM EST on 11-07-2025 and acknowledged by MORTGAGE ACCOUNTING CLERK ARAM TOLBERT /[place] EXAM: CT Abdomen and Pelvis with IV contrast CLINICAL HISTORY: RIGHT LOWER QUADRANT PAIN WITH TACHYCARDIA FEVER TECHNIQUE: Axial computed tomography images of the abdomen and pelvis with intravenous contrast. CONTRAST: with intravenous contrast. COMPARISON: None provided. FINDINGS: LUNG BASES: The lung bases appear clear. No pleural effusions are seen. LIVER: Unremarkable. GALLBLADDER AND BILE DUCTS: The gallbladder appears within normal limits. No radioopaque gallstones are seen. No biliary ductal dilatation is evident. PANCREAS: Unremarkable. SPLEEN: Unremarkable. ADRENAL GLANDS: Unremarkable. KIDNEYS, URETERS, AND BLADDER: The kidneys appear within normal limits. There is no hydronephrosis or hydroureter. No urinary calculi are seen. STOMACH AND BOWEL: Unremarkable appearance of the stomach and bowel. No evidence of bowel obstruction. No evidence suggesting enteritis or colitis. APPENDIX: Hyperemic and thickened (12 mm) appendix with adjacent inflammatory stranding, consistent with acute appendicitis. PERITONEUM: Small amount of free fluid. No free air or fluid collection. LYMPH NODES: No lymphadenopathy is evident. REPRODUCTIVE: Unremarkable as visualized. VASCULATURE: No evidence of abdominal aortic aneurysm. BONES: No aggressive appearing osseous lesion. No acute osseous pathology evident. IMPRESSION: 1. Hyperemic and thickened (12 mm) appendix with adjacent inflammatory stranding, consistent with acute appendicitis. 2. Small amount of free fluid. No free air or fluid collection. /[facility] DICTATED BY: DARY HAILE MD DATE: 11/07/25 1503 PATIENT: KATERIN VILLAFANA ACCT: [id number] LOC: [facility] U: [id number] AGE/SX: 35/F ROOM: 314 RE11/07/[address]: INDIA ELIZONDO MD : 1990 BED: 1 DIS: STATUS: ADM IN TLOC: SPEC: [id number] CHELY: 11/07/25 STATUS: RES REQ: [id number] RECD: 11/07/[address]: NU KNOX MD SOURCE: APPENDIX ENTR: 11/07/[address]: INDIA ELIZONDO MD SPDESC: ABSCESS SELF,REFERRAL ORDERED: [place] CULTURE, AEROBIC CULTURE COMMENTS: Has specimen been collected/obtained? Y Has specimen been collected/obtained? Y Has specimen been collected/obtained? Y Has specimen been collected/obtained? Y Has specimen been collected/obtained? Y Procedure Result Yue Date-Time ANAEROBIC CULTURE Preliminary 11/09/25 [facility] DESCRIPTION: REPORT 1: NO ANAEROBES AT 16-23 HOURS; STUDIES TO CONTINUE Test(s) performed by: [facility] [address] [place] [address] AEROBIC CULTURE Preliminary 11/09/25 [facility] DESCRIPTION: REPORT 1: 2+ GRAM NEGATIVE RODS IDENTIFICATION AND SENSITIVITY TO FOLLOW ASSESSMENT: Acute appendicitis with perforated appendix, status post laparoscopic appendectomy on 11/07/2025. Leukocytosis. Hypertension, not on medications. PLAN: Continue Zosyn. Start fluconazole. Case management evaluation for referral to [facility] for outpatient IV antibiotics. Place midline. We will follow up on the appendix abscess cultures results. Thank you for allowing [facility] to participate in the care of this patient. This case was reviewed and discussed with my supervising physician Dr. Ramirez and the above assessment and plan was formulated and agreed upon. ATTESTATION BY PHYSICIAN I have seen and examined the patient. I reviewed the documentation, medical decision making, and treatment plan as noted by the mid-level provider above. I agree with the findings and plan of care. FARHAD RAMIREZ MD, [facility] Nov 09, 2025 13:14
--- NOTE | 2025-11-09 15:00 | NUR ---
As per nurse, patient up walking in the halls. No skilled PT need at this time.
[2025-11-09 20:58] LABS: NUCLEATED RED BLOOD CELLS 0.0 % (0.0-0.19); PLATELET COUNT (AUTO) 253.0 K/uL (130-400); RED BLOOD CELL COUNT(AUTO) 3.49 MIL/uL (4.00-5.50); RED CELL DISTRIBUTION WIDTH 12.5 % (11.0-15.5); WHITE BLOOD COUNT (AUTO) 12.8 K/uL (4.8-10.8)
[2025-11-10] VITALS (7 sets, daily range): BP systolic 119–138; BP diastolic 68–79; PULSE 81–93; RESP 18–20; TEMP 97.7–98.8; O2SAT 97
[2025-11-10 06:08] LABS: NUCLEATED RED BLOOD CELLS 0.0 % (0.0-0.19); PLATELET COUNT (AUTO) 258.0 K/uL (130-400); RED BLOOD CELL COUNT(AUTO) 3.4 MIL/uL (4.00-5.50); RED CELL DISTRIBUTION WIDTH 12.4 % (11.0-15.5); WHITE BLOOD COUNT (AUTO) 10.7 K/uL (4.8-10.8)
[2025-11-10 06:36] LABS: ASPARTATE AMINOTRANSFERASE 17.0 U/L (10-37); CREATININE 0.9 mg/dL (0.5-1.0); GLOMERULAR FILTR. RATE CALC 86.0 mL/min (>90); GLUCOSE,RANDOM 98.0 mg/dL (70-105); SODIUM SERUM 138.0 mmol/L (136-145); TOTAL PROTEIN, SERUM 6.8 g/dL (6.0-8.3); UREA NITROGEN, BLOOD 8.0 mg/dL (7-18)
[2025-11-10] MEDS: MAGNESIUM 2GM PREMIX 50ML 50 ML IV PRN (08:50)
--- NOTE | 2025-11-10 11:15 | PN ---
INFECTIOUS DISEASE PROGRESS NOTE Date of Service: Nov 10, 2025 SUBJECTIVE: This is a 35-year-old female patient who is status post laparoscopic appendectomy on 11/07/2025. The appendix abscess culture results came back positive for E coli. The WBC has trended down to 10.7. We will continue on Zos yn and fluconazole. Patient needs to continue IV antibiotics for 14 days on discharge. Case management working on referral to [facility] for outpatient IV antibiotics and pending a midline placement. PHYSICAL EXAM EYES: Anicteric. Pupils equal and reactive. HENT: No oral thrush seen, moist Oral mucosa. NECK: Supple, no JVD or thyromegaly. LUNGS: Good air entry. No rales, no rhonchi. CARDIOVASCULAR: S1, S2 regular. No murmur heard. ABDOMEN: Soft, non tender, bowel sounds present. Surgical incisions. CENTRAL NERVOUS SYSTEM: Awake, alert, oriented x 3. SKIN: No rashes, no swelling. LYMPHATICS: No peripheral lymphadenopathy. MUSCULOSKELETAL: No joint swelling, erythema or tenderness. EXTREMITIES: No cyanosis or clubbing BACK: No deformity, no pressure ulcer. GENITOURINARY: No dysuria or hematuria. Vital Sign (Last 12 Hours) 11/10/25 11/10/25 11/10/25 00:33 04:07 08:50 Temp 98.4 97.9 98.8 Pulse 93 83 81 Resp 18 18 20 B/P (MAP) 127/79 123/68 119/70 Pulse Ox 98 97 97 O2 Delivery Room Air Room Air Room Air Intake & Output (last 24hrs) 11/09/25 11/09/25 11/10/25 15:00 23:00 07:00 Intake Total 102.0 ml 160.0 ml Output Total 40 ml Balance 102.0 ml 120.0 ml LABS: Laboratory: Test 11/10/25 05:47 11/09/25 04:42 Range/Units White Blood Count 10.7 4.8-10.8 K/uL Red Blood Count 3.40 L 4.00-5.50 MIL/uL Hemoglobin 10.0 L 12.0-16.0 g/dL Hematocrit 30.4 L 36-48 % Mean Corpuscular Volume 89.4 79-99 fL Mean Corpuscular Hemoglobin 29.4 27.0-33.0 pg Mean Corpuscular Hemoglobin Concent 32.9 32.0-36.0 g/dL Red Cell Distribution Width 12.4 11.0-15.5 % Platelet Count 258 130-400 K/uL Mean Platelet Volume 10.7 H 7.5-10.5 fL Nucleated Red Blood Cells 0.0 0.0-0.19 % Sodium Level 138 136-145 mmol/L Potassium Level 3.6 3.5-5.1 mmol/L Chloride Level 105 101-111 mmol/L Carbon Dioxide Level 22 21-32 mmol/L Blood Urea Nitrogen 8 7-18 mg/dL Creatinine 0.9 0.5-1.0 mg/dL Glomerular Filtration Rate Calc 86 >90 mL/min Random Glucose 98 70-105 mg/dL Total Calcium 8.4 L 8.5-10.1 mg/dL Magnesium Level 1.80 1.80-2.40 mg/dL Total Bilirubin 0.4 0.2-1.0 mg/dL Aspartate Amino Transf (AST/SGOT) 17 10-37 U/L Alanine Aminotransferase (ALT/SGPT) 27 12-78 U/L Alkaline Phosphatase 76 50-136 U/L Total Protein 6.8 6.0-8.3 g/dL Albumin 2.5 L 3.5-5.0 g/dL Immature Granulocyte % (Auto) 0.5 0-1 % Neutrophils (%) (Auto) 76.2 40.0-77.0 % Lymphocytes (%) (Auto) 16.6 L 21.0-51.0 % Monocytes (%) (Auto) 5.9 3.0-13.0 % Eosinophils (%) (Auto) 0.5 0.0-8.0 % Basophils (%) (Auto) 0.3 0.0-5.0 % Neutrophils # (Auto) 11.4 H 1.8-7.7 K/uL Lymphocytes # (Auto) 2.5 1.0-4.8 K/uL Monocytes # (Auto) 0.9 0.1-1.0 K/uL Eosinophils # (Auto) 0.08 0.00-0.70 K/uL Basophils # (Auto) 0.04 0.00-0.20 K/uL Absolute Immature Granulocyte (auto 0.07 0-1 K/uL DIAGNOSTICS / RADIOLOGY: PATIENT: KATERIN VILLAFANA ACCT: [id number] LOC: 3CH U: [id number] AGE/SX: 35/F ROOM: 314 RE11/07/[address]: INDIA ELIZONDO MD : 1990 BED: 1 DIS: STATUS: ADM IN TLOC: SPEC: [id number] CHELY: 11/07/25 STATUS: RES REQ: [id number] RECD: 11/07/25-[address]: NU KNOX MD SOURCE: APPENDIX ENTR: 11/07/[address]: INDIA ELIZONDO MD SPDESC: ABSCESS SELF,REFERRAL ORDERED: [place] CULTURE, AEROBIC CULTURE COMMENTS: Has specimen been collected/obtained? Y Has specimen been collected/obtained? Y Procedure Result Yue Date-Time ANAEROBIC CULTURE Preliminary 11/10/25-616 MRL COLONY DESCRIPTION: REPORT 1: NO ANAEROBES AT 16-23 HOURS; STUDIES TO CONTINUE REPORT 2: NO ANAEROBES AT 36-47 HOURS; STUDIES TO CONTINUE Test(s) performed by: [facility] [address] [place] [address] AEROBIC CULTURE Final 11/10/25-0558 MRL COLONY DESCRIPTION: REPORT 1: 2+ GRAM NEGATIVE RODS IDENTIFICATION AND SENSITIVITY TO FOLLOW REPORT 2: NO FURTHER WORK-UP DONE ESCHERICHIA COLI CONTINUED ON NEXT PAGE RUN DATE: 11/10/25 [facility] PAGE 2 RUN TIME: [phone] [address], [place] [address] Department of Laboratories CLIA # [id number] Epic Prelude Analyst: Patty Fang DO Specimen Report SPEC: [id number] PATIENT: KATERIN VILLAFANA [id number] (Continued) Procedure Result Yue Date-Time ----- ------- AEROBIC CULTURE Final (continued) 11/10/25-58 E COLI M.I.C. RX --------- ---- AMPICILLIN <=8 S AZTREONAM <=4 S CEFAZOLIN <=2 S CEFTAZIDIME/AVIBACTAM <=8 S CIPROFLOXACIN >2 R GENTAMICIN <=2 S LEVOFLOXACIN >4 R MEROPENEM <=1 S PIPERACILLIN/TAZOBACTAM <=8 S TRIMETHOPRIM/SUFLAMETHOXAZOLE >2/38 R ASSESSMENT: Acute appendicitis with perforated appendix, status post laparoscopic appendectomy. E coli infection. Leukocytosis, resolving. Hypertension, not on medication. PLAN: Continue Zosyn. Continue fluconazole. Case management evaluation for referral to [facility] for outpatient IV antibiotics with Zosyn for 14 days. Pending midline placement. This case was reviewed and discussed with my supervising physician Dr. Ramirez and the above assessment and plan was formulated and agreed upon. ATTESTATION BY PHYSICIAN I have seen and examined the patient. I reviewed the documentation, medical decision making, and treatment plan as noted by the mid-level provider above. I agree with the findings and plan of care. FARHAD RAMIREZ MD, [facility] Nov 10, 2025 11:15
--- NOTE | 2025-11-10 12:56 | PN ---
[facility] PROGRESS NOTE Date of Service: Nov 10, 2025 Time of Service: 12:54 SUBJECTIVE: 11/08 patient remains admitted to the medical floor, underwent appendectomy 11/07/2025, she feels weak, passing gas but no bowel. Hemodynamically stable, afebrile, saturating normal on room air. Hemoglobin 10.5, hematocrit 31.1, WBC of 18.7. Patient currently on Zosyn IV. Continue to follow a.m. labs. Follow surgical input recommendation. 11/09 patient remains admitted to medical floor, comfortably in bed, alert oriented x3, passing gas but no bowel movement yet. Hemodynamically stable, afebrile, saturating normal on room air. Leukocytosis improving, WBC today 14.9, down from 18.7. Mild drop in hemoglobin to 10.2 from 12.2, with a hematocrit 30.7 from 37.5. Continue to follow surgical input and recommendation. Follow repeat CBC today, transfuse as needed. Follow a.m. labs. Discussed with the patient, in agreement. 11/10 remains admitted to medical floor, comfortable, awake, following commands, feels weak, hemodynamically stable, afebrile, saturating normal on room air. Leukocytosis improved, WBC today 10.7, hemoglobin 10.0, hematocrit 30.4. Cultures from the appendix positive for E coli. Continue broad-spectrum IV antibiotics. Continue to follow general surgery and ID input recommendation. Discussed with case management. REVIEW OF SYSTEMS CONSTITUTIONAL: Denies night sweats. No unintentional weight loss reported. Positive for fever, chills NEUROLOGICAL: Denies headache, amaurosis fugax, motor weakness, sensory deficit, vertigo/spinning sensation, gait abnormalities, or tremors. ENT: No hearing loss, otalgia, otorrhea, rhinitis, rhinorrhea, hoarseness, or sore throat. CARDIOVASCULAR: Denies any exertional angina, dyspnea on exertion, orthopnea, paroxysmal nocturnal dyspnea, palpitations, life-threatening arrhythmias, claudication. PULMONARY: Denies any shortness of breath, cough, phlegm/sputum, hemoptysis, pleuritic chest pain. GASTROINTESTINAL: Positive for abdominal pain, nausea, vomiting. Denied any diarrhea, constipation, melena, hematochezia, hematemesis GENITOURINARY: Denies frequency, urgency, nocturia, hematuria or incontinence (Storage/Irritative symptoms.) Low urinary stream, straining to void, urinary i ntermittency or hesitancy, splitting of the voiding stream, terminal dribbling. ENDOCRINOLOGIC: Denies polyuria, polydipsia, polyphagia or heat/cold intolerances. HEMATOLOGIC: Denies thrombophilia/previous clots, or coagulopathy/bleeding disorders. ONCOLOGIC: Denies personal history of malignancy. DERMATOLOGIC: Denies rashes or pruritus. PSYCHIATRIC: Denies any suicidal or homicidal ideation. Denies hallucinations. PHYSICAL EXAM GENERAL APPEARANCE: The patient is awake, alert, and oriented, in no acute cardiopulmonary distress. NEUROLOGICAL: Cranial nerves II-XII grossly intact. Motor is 5/5 in bilateral upper and lower extremities proximal to distal. No sensory deficits. HEENT: Face is symmetric. Pupils are equal and reactive. Extraocular movements are intact. NECK: Supple. No JVD. No thyromegaly. No submental, submandibular, pre- /postauricular, occipital or supraclavicular lymphadenopathy. CHEST: Normal chest expansion. No Telemetry. LUNGS: Absence of any rales, rhonchi or any wheezing. CARDIOVASCULAR: Regular. S1 and S2 normal. No appreciable rubs, murmurs or gallops. ABDOMEN: Soft, tenderness to palpation in the right lower quadrant. Abdomen is soft to palpation. No guarding present : Deferred. No Inman. EXTREMITIES: Non-edematous and not cyanotic. No clubbing. Good capillary refill. SKIN: No skin breakdown. Vital Signs (last 8hr) Date Time Temp Pulse Resp B/P (MAP) Pulse Ox O2 Delivery O2 Flow Rate FiO2 11/10/25 11:26 97.7 84 18 121/76 100 Room Air 11/10/25 08:50 98.8 81 20 119/70 97 Room Air 11/10/25 07:30 97 Room Air* 0 21 LABS: Laboratory: Test 11/10/25 05:47 11/09/25 04:42 Range/Units White Blood Count 10.7 4.8-10.8 K/uL Red Blood Count 3.40 L 4.00-5.50 MIL/uL Hemoglobin 10.0 L 12.0-16.0 g/dL Hematocrit 30.4 L 36-48 % Mean Corpuscular Volume 89.4 79-99 fL Mean Corpuscular Hemoglobin 29.4 27.0-33.0 pg Mean Corpuscular Hemoglobin Concent 32.9 32.0-36.0 g/dL Red Cell Distribution Width 12.4 11.0-15.5 % Platelet Count 258 130-400 K/uL Mean Platelet Volume 10.7 H 7.5-10.5 fL Nucleated Red Blood Cells 0.0 0.0-0.19 % Sodium Level 138 136-145 mmol/L Potassium Level 3.6 3.5-5.1 mmol/L Chloride Level 105 101-111 mmol/L Carbon Dioxide Level 22 21-32 mmol/L Blood Urea Nitrogen 8 7-18 mg/dL Creatinine 0.9 0.5-1.0 mg/dL Glomerular Filtration Rate Calc 86 >90 mL/min Random Glucose 98 70-105 mg/dL Total Calcium 8.4 L 8.5-10.1 mg/dL Magnesium Level 1.80 1.80-2.40 mg/dL Total Bilirubin 0.4 0.2-1.0 mg/dL Aspartate Amino Transf (AST/SGOT) 17 10-37 U/L Alanine Aminotransferase (ALT/SGPT) 27 12-78 U/L Alkaline Phosphatase 76 50-136 U/L Total Protein 6.8 6.0-8.3 g/dL Albumin 2.5 L 3.5-5.0 g/dL Immature Granulocyte % (Auto) 0.5 0-1 % Neutrophils (%) (Auto) 76.2 40.0-77.0 % Lymphocytes (%) (Auto) 16.6 L 21.0-51.0 % Monocytes (%) (Auto) 5.9 3.0-13.0 % Eosinophils (%) (Auto) 0.5 0.0-8.0 % Basophils (%) (Auto) 0.3 0.0-5.0 % Neutrophils # (Auto) 11.4 H 1.8-7.7 K/uL Lymphocytes # (Auto) 2.5 1.0-4.8 K/uL Monocytes # (Auto) 0.9 0.1-1.0 K/uL Eosinophils # (Auto) 0.08 0.00-0.70 K/uL Basophils # (Auto) 0.04 0.00-0.20 K/uL Absolute Immature Granulocyte (auto 0.07 0-1 K/uL Current Medications Medications (Trade) Dose Ordered Sig/Lea Route PRN Reason Start Time Stop Time Status Last Admin Dose Admin Acetaminophen (acetaMINOPHEN 1,000MG/100ML) 1,000 mg NOW IVPB 11/07/25 19:00 11/07/25 23:30 DC 11/07/25 18:56 1,000 MG Famotidine (Pepcid 20mg Vial) 20 mg BID IV 11/07/25 21:00 12/07/25 20:59 11/10/25 08:10 20 MG Fentanyl Citrate (FENTanyl CITRate PF 50 MCG/ 1 ML 2ML VIAL) 25 mcg Q5MIN PRN IVP PAIN LEVEL 7 TO 10 11/07/25 17:00 11/07/25 19:41 DC Fluconazole/ Sodium Chloride 100 ml @ 100 mls/hr Q24H IV 11/09/25 13:30 12/09/25 13:29 11/09/25 15:38 100 MLS/HR Ketorolac Tromethamine (toRADol) 15 mg Q6H PRN IV MODERATE PAIN (4-6) 11/07/25 14:00 11/12/25 13:59 11/08/25 20:30 15 MG Ketorolac Tromethamine (toRADol) 30 mg AD PRN IV PAIN LEVEL 1 TO 3 11/07/25 17:00 11/07/25 19:41 DC Magnesium Sulfate 50 ml @ 0 mls/hr PROTOCOL PRN IV HYPOMAGNESEMIA 11/10/25 08:30 12/10/25 08:29 11/10/25 08:50 25 MLS/HR Metoclopramide HCl (regLAN 10MG IV) 10 mg ACHS IVP 11/08/25 21:00 12/08/25 20:59 11/10/25 12:12 10 MG Metoclopramide HCl (regLAN 10MG IV) 10 mg AD PRN IVP NAUSEA/VOMITING 11/07/25 17:00 11/07/25 19:41 DC Morphine Sulfate (morPHINE 2MG SYG) 2 mg AD PRN IVP PAIN LEVEL 4 TO 6 11/07/25 17:00 11/07/25 19:41 DC Morphine Sulfate (morPHINE 2MG SYG) 2 mg Q6H PRN IVP SEVERE PAIN (7-10) 11/07/25 14:00 11/14/25 13:59 11/08/25 08:59 2 MG Naloxone HCl (NARcan 0.4mg/1 mL) 0.1 mg AD PRN IVP RESPIRATORY SYMPTOMS 11/07/25 23:55 11/07/25 19:41 DC Ondansetron HCl (zoFRAN 4MG INJ) 4 mg AD PRN IVP NAUSEA/VOMITING 11/07/25 17:00 11/07/25 19:41 DC Ondansetron HCl (zoFRAN 4MG INJ) 4 mg Q6H PRN IVP NAUSEA/VOMITING 11/07/25 14:00 12/07/25 13:59 11/08/25 18:06 4 MG Piperacillin Sod/ Tazobactam Sod (Zosyn 3.375gm+NS 50ml) 3.375 gm ZOSY8 IVPB 11/07/25 21:00 11/17/25 20:59 11/10/25 12:12 3.375 GM Potassium Chloride 100 ml @ 100 mls/hr AD PRN IV POTASSIUM PROTOCOL 11/07/25 14:00 12/07/25 13:59 Potassium Chloride (K-Dur/Klor-Con 20meq) 20 meq AD PRN PO POTASSIUM PROTOCOL 11/07/25 14:00 12/07/25 13:59 11/10/25 08:11 20 MEQ Potassium Chloride (KCl 10% Elixir 20meq/15ml) 20 meq AD PRN PO POTASSIUM PROTOCOL 11/07/25 14:00 12/07/25 13:59 Promethazine HCl (Phenergan) 25 mg AD PRN IM NAUSEA/VOMITING 11/07/25 17:00 11/07/25 19:41 DC Sodium Chloride 1,000 ml @ 100 mls/hr Q10H IV 11/07/25 14:00 12/07/25 13:59 11/10/25 12:12 100 MLS/HR Sodium Chloride (NS 50ml) 50 ml AD IV 11/07/25 20:00 11/07/25 13:52 DC DIAGNOSTICS / RADIOLOGY: [ ] ASSESSMENT: Sepsis secondary to acute appendicitis POA (tachycardia, leukocytosis) Acute appendicitis status post appendectomy 11/07/2025 Obesity BMI 41.2 PLAN: remains admitted to medical floor, comfortable, awake, following commands, feels weak, hemodynamically stable, afebrile, saturating normal on room air. Leukocytosis improved, WBC today 10.7, hemoglobin 10.0, hematocrit 30.4. Cultures from the appendix positive for E coli. Continue broad-spectrum IV antibiotics. Continue to follow general surgery and ID input recommendation. Discussed with case management. NEURO: Minimize central acting medications as possible. Fall Precautions. Well lighted room through the day and minimize interruptions through the night to prevent acute delirium. PULMONARY: Supplemental 02 as needed BiPAP as necessary, for respiratory distress Titrate Fio2 to keep Spo2 > or = 90% DuoNebs and CPT as needed IS hourly while awake for pulmonary hygiene prn Out of bed to chair as tolerated Maintain aspiration precautions at all times CARDIOVASCULAR: Follow hemodynamics. Vital signs per facility protocol GI & NUTRITION: Continue nutritional support Aspirations precautions Prokinetic agents and laxatives as needed KIDNEYS & ELECTROLYTES: Strict monitoring of intake and output Daily weights Avoid nephrotoxic agents Monitor electrolytes and replace as needed Goal urine output of 30mL/hr or 0.5mL/kg/hr Medications to be dosed according to renal function. Avoid contrast if possible ENDOCRINE: Maintain blood glucose between 100-180 at all times. Insulin sliding scale for blood glucose management Hypoglycemia and hyperglycemia protocol in place INFECTIOUS DISEASE: Trend temperature, WBC and procalcitonin level Follow cultures, deescalate antibiotics as soon as possible. Panculture if new onset fever HEMATOLOGY & COAGULATION: Monitor H&H. Keep Hgb > 7 Transfuse 1 unit of PRBC for Hgb < 7 Transfuse 1 pack of platelets of platelets < 20, 000 Watch for any signs and symptoms of bleeding SKIN: Pressure ulcer prevention per facility protocol Specialty mattress as needed ORTHO/REHAB Continue PT/OT PRN: MEDICATIONS Tylenol 650 mg po every 4 hrs for fever zofran 4 mg IV every 6 hrs for n/v Hydralazine 5 mg IV every 4 hrs systolic pressure > 160 bowel regiment: lactulose 20 gm PO BID PRN constipation Supportive measures: Continue GI and DVT prophylaxis Disposition: Pending improvement in clinical condition All questions answered time spent: > 35 min SUSAN WAGNER MD Nov 10, 2025 12:56
--- NOTE | 2025-11-10 16:40 | PN ---
This is a 35-year-old female postop day three for appendectomy with perforated appendicitis Interval history: This 35-year-old female seen in her room resting NATALIIA drain serosanguineous Labs improving Patient tolerating diet No acute events reported Physical exam General: Awake alert and oriented Heart: Regular rate and rhythm} Lungs: Clear to auscultation no distress Abdomen: [Soft, nontender, nondistended NATALIIA in place Assessment : This is a 35-year-old female postop day three for appendectomy with perforated appendicitis Plan: This point in time we will await for clearance from primary team before clearing patient from surgical standpoint NATALIIA output needs to trend down before consideration for removal Continue with the IV antibiotics Continue to advance diet as tolerated Possible discharge in next day or two Surgical case has been discussed with my supervising physician in the above plan was formulated and agreed upon We appreciate the hospitalist team for us to participate in patient's care. Greater than 45 minutes of time spent patient, reviewing chart, working on documentation Vitals/Labs Vital Signs Date Time Temp Pulse Resp B/P (MAP) Pulse Ox O2 Delivery O2 Flow Rate FiO2 11/10/25 15:57 98.1 88 18 138/77 98 Room Air 11/10/25 07:30 0 21 Laboratory Tests 11/09/25 20:45 11/10/25 05:47 Medications Current Medications Sodium Chloride 1,000 ml @ 0 mls/hr ONCE ONCE IV Last administered on 11/07/25at 11:43; Start 11/07/25 at 10:30; Stop 11/07/25 at 10:31; Status DC Morphine Sulfate 2 mg ONCE ONCE IVP Last administered on 11/07/25at 11:43; Start 11/07/25 at 10:30; Stop 11/07/25 at 10:31; Status DC Ondansetron HCl 4 mg ONCE ONCE IVP Last administered on 11/07/25at 11:43; Start 11/07/25 at 10:30; Stop 11/07/25 at 10:31; Status DC Iohexol 75 ml STK-MED ONCE IV; Start 11/07/25 at 11:15; Stop 11/07/25 at 11:15; Status DC Piperacillin Sod/ Tazobactam Sod 3.375 gm ONCE ONCE IVPB Last administered on 11/07/25at 13:41; Start 11/07/25 at 13:30; Stop 11/07/25 at 13:31; Status DC Famotidine 20 mg BID IV Last administered on 11/10/25at 08:10; Start 11/07/25 at 21:00; Stop 12/07/25 at 20:59 Sodium Chloride 1,000 ml @ 100 mls/hr Q10H IV Last administered on 11/10/25at 12:12; Start 11/07/25 at 14:00; Stop 12/07/25 at 13:59 Piperacillin Sod/ Tazobactam Sod 3.375 gm ZOSY8 IVPB Last administered on 11/10/25at 12:12; Start 11/07/25 at 21:00; Stop 11/17/25 at 20:59 Sodium Chloride 50 ml AD IV; Start 11/07/25 at 20:00; Stop 11/07/25 at 13:52; Status DC Morphine Sulfate 2 mg Q6H PRN IVP Last administered on 11/08/25at 08:59; Start 11/07/25 at 14:00; Stop 11/14/25 at 13:59 Ketorolac Tromethamine 15 mg Q6H PRN IV Last administered on 11/08/25at 20:30; Start 11/07/25 at 14:00; Stop 11/12/25 at 13:59 Potassium Chloride 100 ml @ 100 mls/hr AD PRN IV; Start 11/07/25 at 14:00; Stop 12/07/25 at 13:59 Potassium Chloride 20 meq AD PRN PO; Start 11/07/25 at 14:00; Stop 12/07/25 at 13:59 Potassium Chloride 20 meq AD PRN PO Last administered on 11/10/25at 16:22; Start 11/07/25 at 14:00; Stop 12/07/25 at 13:59 Ondansetron HCl 4 mg Q6H PRN IVP Last administered on 11/08/25at 18:06; Start 11/07/25 at 14:00; Stop 12/07/25 at 13:59 Ondansetron HCl 4 mg AD PRN IVP; Start 11/07/25 at 17:00; Stop 11/07/25 at 19:41; Status DC Metoclopramide HCl 10 mg AD PRN IVP; Start 11/07/25 at 17:00; Stop 11/07/25 at 19:41; Status DC Promethazine HCl 25 mg AD PRN IM; Start 11/07/25 at 17:00; Stop 11/07/25 at 19:41; Status DC Ketorolac Tromethamine 30 mg AD PRN IV; Start 11/07/25 at 17:00; Stop 11/07/25 at 19:41; Status DC Morphine Sulfate 2 mg AD PRN IVP; Start 11/07/25 at 17:00; Stop 11/07/25 at 19:41; Status DC Fentanyl Citrate 25 mcg Q5MIN PRN IVP; Start 11/07/25 at 17:00; Stop 11/07/25 at 19:41; Status DC Naloxone HCl 0.1 mg AD PRN IVP; Start 11/07/25 at 23:55; Stop 11/07/25 at 19:41; Status DC Midazolam HCl 2 mg STK-MED ONCE .ROUTE; Start 11/07/25 at 17:19; Stop 11/07/25 at 17:19; Status DC Bupivacaine HCl 2.5 mg STK-MED ONCE IJ; Start 11/07/25 at 17:27; Stop 11/07/25 at 17:27; Status DC Ketamine HCl 50 mg STK-MED ONCE .ROUTE; Start 11/07/25 at 17:31; Stop 11/07/25 at 17:31; Status DC Propofol 200 mg STK-MED ONCE IV; Start 11/07/25 at 17:31; Stop 11/07/25 at 17:32; Status DC Succinylcholine Chloride 200 mg STK-MED ONCE .ROUTE; Start 11/07/25 at 17:32; Stop 11/07/25 at 17:32; Status DC Rocuronium Glasco 50 mg STK-MED ONCE .ROUTE; Start 11/07/25 at 17:32; Stop 11/07/25 at 17:32; Status DC Fentanyl Citrate 100 mcg STK-MED ONCE .ROUTE; Start 11/07/25 at 17:32; Stop 11/07/25 at 17:32; Status DC Phenylephrine HCl 10 mg STK-MED ONCE IV; Start 11/07/25 at 17:45; Stop 11/07/25 at 17:45; Status DC Sodium Chloride 10 ml STK-MED ONCE .ROUTE; Start 11/07/25 at 17:45; Stop 11/07/25 at 17:45; Status DC Cefazolin Sodium 1 gm STK-MED ONCE .ROUTE; Start 11/07/25 at 17:51; Stop 11/07/25 at 17:52; Status DC Ondansetron HCl 4 mg STK-MED ONCE .ROUTE; Start 11/07/25 at 17:53; Stop 11/07/25 at 17:53; Status DC Ketorolac Tromethamine 30 mg STK-MED ONCE .ROUTE; Start 11/07/25 at 18:11; Stop 11/07/25 at 18:11; Status DC Acetaminophen 1,000 mg NOW IVPB Last administered on 11/07/25at 18:56; Start 11/07/25 at 19:00; Stop 11/07/25 at 23:30; Status DC Acetaminophen 100 ml @ As Directed STK-MED ONCE .ROUTE; Start 11/07/25 at 18:44; Stop 11/07/25 at 18:45; Status DC Bupivacaine HCl/ Epinephrine Bitart 50 ml STK-MED ONCE IJ Last administered on 11/07/25at 18:20; Start 11/07/25 at 18:20; Stop 11/08/25 at 11:50; Status DC Metoclopramide HCl 10 mg ACHS IVP Last administered on 11/10/25at 16:22; Start 11/08/25 at 21:00; Stop 12/08/25 at 20:59 Fluconazole/ Sodium Chloride 100 ml @ 100 mls/hr Q24H IV Last administered on 11/10/25at 14:17; Start 11/09/25 at 13:30; Stop 12/09/25 at 13:29 Magnesium Sulfate 50 ml @ 0 mls/hr PROTOCOL PRN IV Last administered on 11/10/25at 08:50; Start 11/10/25 at 08:30; Stop 12/10/25 at 08:29 JAZMYNE FITZGERALD Jr. PAC Nov 10, 2025 16:40
[2025-11-11] VITALS (7 sets, daily range): BP systolic 112–133; BP diastolic 55–83; PULSE 77–95; RESP 17–19; TEMP 97.9–98.9; O2SAT 96–97
--- NOTE | 2025-11-11 10:01 | PN ---
This is a 35-year-old female postop day four for appendectomy with perforated appendicitis Interval history: Attempt to see patient made the patient's showering Nursing he has not tract, much NATALIIA output has been noted No new labs today No reports of abdominal pain or acute events overnight Physical exam General: Awake alert and oriented Heart: Regular rate and rhythm} Lungs: Clear to auscultation no distress Abdomen: [Soft, nontender, nondistended Assessment : This is a 35-year-old female postop day four for appendectomy with perforated appendicitis Plan: From surgical standpoint patient is cleared for discharge but we will need antibiotics NATALIIA drain to be removed at less than 40 mL in 24 hour Patient to follow up in two weeks Dr. Loera's office Surgical team to be updated with any further acute events Surgical case has been discussed with my supervising physician in the above plan was formulated and agreed upon We appreciate the hospitalist team for us to participate in patient's care. Greater than 45 minutes of time spent patient, reviewing chart, working on documentation Vitals/Labs Vital Signs Date Time Temp Pulse Resp B/P (MAP) Pulse Ox O2 Delivery O2 Flow Rate FiO2 11/11/25 08:11 98.1 91 17 114/55 97 Room Air 11/10/25 20:00 0 21 Medications Current Medications Sodium Chloride 1,000 ml @ 0 mls/hr ONCE ONCE IV Last administered on 11/07/25at 11:43; Start 11/07/25 at 10:30; Stop 11/07/25 at 10:31; Status DC Morphine Sulfate 2 mg ONCE ONCE IVP Last administered on 11/07/25at 11:43; Start 11/07/25 at 10:30; Stop 11/07/25 at 10:31; Status DC Ondansetron HCl 4 mg ONCE ONCE IVP Last administered on 11/07/25at 11:43; Start 11/07/25 at 10:30; Stop 11/07/25 at 10:31; Status DC Iohexol 75 ml STK-MED ONCE IV; Start 11/07/25 at 11:15; Stop 11/07/25 at 11:15; Status DC Piperacillin Sod/ Tazobactam Sod 3.375 gm ONCE ONCE IVPB Last administered on 11/07/25at 13:41; Start 11/07/25 at 13:30; Stop 11/07/25 at 13:31; Status DC Famotidine 20 mg BID IV Last administered on 11/11/25at 07:53; Start 11/07/25 at 21:00; Stop 12/07/25 at 20:59 Sodium Chloride 1,000 ml @ 100 mls/hr Q10H IV Last administered on 11/10/25at 20:09; Start 11/07/25 at 14:00; Stop 12/07/25 at 13:59 Piperacillin Sod/ Tazobactam Sod 3.375 gm ZOSY8 IVPB Last administered on 11/11/25at 05:09; Start 11/07/25 at 21:00; Stop 11/17/25 at 20:59 Sodium Chloride 50 ml AD IV; Start 11/07/25 at 20:00; Stop 11/07/25 at 13:52; Status DC Morphine Sulfate 2 mg Q6H PRN IVP Last administered on 11/08/25at 08:59; Start 11/07/25 at 14:00; Stop 11/14/25 at 13:59 Ketorolac Tromethamine 15 mg Q6H PRN IV Last administered on 11/08/25at 20:30; Start 11/07/25 at 14:00; Stop 11/12/25 at 13:59 Potassium Chloride 100 ml @ 100 mls/hr AD PRN IV; Start 11/07/25 at 14:00; Stop 12/07/25 at 13:59 Potassium Chloride 20 meq AD PRN PO; Start 11/07/25 at 14:00; Stop 12/07/25 at 13:59 Potassium Chloride 20 meq AD PRN PO Last administered on 11/11/25at 06:27; Start 11/07/25 at 14:00; Stop 12/07/25 at 13:59 Ondansetron HCl 4 mg Q6H PRN IVP Last administered on 11/08/25at 18:06; Start 11/07/25 at 14:00; Stop 12/07/25 at 13:59 Ondansetron HCl 4 mg AD PRN IVP; Start 11/07/25 at 17:00; Stop 11/07/25 at 19:41; Status DC Metoclopramide HCl 10 mg AD PRN IVP; Start 11/07/25 at 17:00; Stop 11/07/25 at 19:41; Status DC Promethazine HCl 25 mg AD PRN IM; Start 11/07/25 at 17:00; Stop 11/07/25 at 19:41; Status DC Ketorolac Tromethamine 30 mg AD PRN IV; Start 11/07/25 at 17:00; Stop 11/07/25 at 19:41; Status DC Morphine Sulfate 2 mg AD PRN IVP; Start 11/07/25 at 17:00; Stop 11/07/25 at 19:41; Status DC Fentanyl Citrate 25 mcg Q5MIN PRN IVP; Start 11/07/25 at 17:00; Stop 11/07/25 at 19:41; Status DC Naloxone HCl 0.1 mg AD PRN IVP; Start 11/07/25 at 23:55; Stop 11/07/25 at 19:41; Status DC Midazolam HCl 2 mg STK-MED ONCE .ROUTE; Start 11/07/25 at 17:19; Stop 11/07/25 at 17:19; Status DC Bupivacaine HCl 2.5 mg STK-MED ONCE IJ; Start 11/07/25 at 17:27; Stop 11/07/25 at 17:27; Status DC Ketamine HCl 50 mg STK-MED ONCE .ROUTE; Start 11/07/25 at 17:31; Stop 11/07/25 at 17:31; Status DC Propofol 200 mg STK-MED ONCE IV; Start 11/07/25 at 17:31; Stop 11/07/25 at 17:32; Status DC Succinylcholine Chloride 200 mg STK-MED ONCE .ROUTE; Start 11/07/25 at 17:32; Stop 11/07/25 at 17:32; Status DC Rocuronium [place] 50 mg STK-MED ONCE .ROUTE; Start 11/07/25 at 17:32; Stop 11/07/25 at 17:32; Status DC Fentanyl Citrate 100 mcg STK-MED ONCE .ROUTE; Start 11/07/25 at 17:32; Stop 11/07/25 at 17:32; Status DC Phenylephrine HCl 10 mg STK-MED ONCE IV; Start 11/07/25 at 17:45; Stop 11/07/25 at 17:45; Status DC Sodium Chloride 10 ml STK-MED ONCE .ROUTE; Start 11/07/25 at 17:45; Stop 11/07/25 at 17:45; Status DC Cefazolin Sodium 1 gm STK-MED ONCE .ROUTE; Start 11/07/25 at 17:51; Stop 11/07/25 at 17:52; Status DC Ondansetron HCl 4 mg STK-MED ONCE .ROUTE; Start 11/07/25 at 17:53; Stop 11/07/25 at 17:53; Status DC Ketorolac Tromethamine 30 mg STK-MED ONCE .ROUTE; Start 11/07/25 at 18:11; Stop 11/07/25 at 18:11; Status DC Acetaminophen 1,000 mg NOW IVPB Last administered on 11/07/25at 18:56; Start 11/07/25 at 19:00; Stop 11/07/25 at 23:30; Status DC Acetaminophen 100 ml @ As Directed STK-MED ONCE .ROUTE; Start 11/07/25 at 18:44; Stop 11/07/25 at 18:45; Status DC Bupivacaine HCl/ Epinephrine Bitart 50 ml STK-MED ONCE IJ Last administered on 11/07/25at 18:20; Start 11/07/25 at 18:20; Stop 11/08/25 at 11:50; Status DC Metoclopramide HCl 10 mg ACHS IVP Last administered on 11/11/25at 06:33; Start 11/08/25 at 21:00; Stop 12/08/25 at 20:59 Fluconazole/ Sodium Chloride 100 ml @ 100 mls/hr Q24H IV Last administered on 11/10/25at 14:17; Start 11/09/25 at 13:30; Stop 12/09/25 at 13:29 Magnesium Sulfate 50 ml @ 0 mls/hr PROTOCOL PRN IV Last administered on 11/11/25at 06:28; Start 11/10/25 at 08:30; Stop 12/10/25 at 08:29 JAZMYNE FITZGERALD Jr. PAC Nov 11, 2025 10:00
[2025-11-11 10:14] LABS: NUCLEATED RED BLOOD CELLS 0.0 % (0.0-0.19); PLATELET COUNT (AUTO) 270.0 K/uL (130-400); RED BLOOD CELL COUNT(AUTO) 3.47 MIL/uL (4.00-5.50); RED CELL DISTRIBUTION WIDTH 12.4 % (11.0-15.5); WHITE BLOOD COUNT (AUTO) 9.0 K/uL (4.8-10.8)
--- NOTE | 2025-11-11 13:45 | PN ---
[facility] PROGRESS NOTE Date of Service: Nov 11, 2025 Time of Service: 13:41 SUBJECTIVE: 11/08 patient remains admitted to the medical floor, underwent appendectomy 11/07/2025, she feels weak, passing gas but no bowel. Hemodynamically stable, afebrile, saturating normal on room air. Hemoglobin 10.5, hematocrit 31.1, WBC of 18.7. Patient currently on Zosyn IV. Continue to follow a.m. labs. Follow surgical input recommendation. 11/09 patient remains admitted to medical floor, comfortably in bed, alert oriented x3, passing gas but no bowel movement yet. Hemodynamically stable, afebrile, saturating normal on room air. Leukocytosis improving, WBC today 14.9, down from 18.7. Mild drop in hemoglobin to 10.2 from 12.2, with a hematocrit 30.7 from 37.5. Continue to follow surgical input and recommendation. Follow repeat CBC today, transfuse as needed. Follow a.m. labs. Discussed with the patient, in agreement. 11/10 remains admitted to medical floor, comfortable, awake, following commands, feels weak, hemodynamically stable, afebrile, saturating normal on room air. Leukocytosis improved, WBC today 10.7, hemoglobin 10.0, hematocrit 30.4. Cultures from the appendix positive for E coli. Continue broad-spectrum IV antibiotics. Continue to follow general surgery and ID input recommendation. Discussed with case management. 11/11 remains admitted to medical floor, comfortable, awake, following commands, feels weak, hemodynamically stable, afebrile, saturating normal on room air. Patient is still having serosanguineous drainage hormone moderate amount from drain. Cultures from the appendix positive for E coli. Continue broad-spectrum IV antibiotics. Continue to follow general surgery and ID input recommendation. Discussed with case management. REVIEW OF SYSTEMS CONSTITUTIONAL: Denies night sweats. No unintentional weight loss reported. Positive for fever, chills NEUROLOGICAL: Denies headache, amaurosis fugax, motor weakness, sensory deficit, vertigo/spinning sensation, gait abnormalities, or tremors. ENT: No hearing loss, otalgia, otorrhea, rhinitis, rhinorrhea, hoarseness, or sore throat. CARDIOVASCULAR: Denies any exertional angina, dyspnea on exertion, orthopnea, paroxysmal nocturnal dyspnea, palpitations, life-threatening arrhythmias, claudication. PULMONARY: Denies any shortness of breath, cough, phlegm/sputum, hemoptysis, pleuritic chest pain. GASTROINTESTINAL: Positive for abdominal pain, nausea, vomiting. Denied any diarrhea, constipation, melena, hematochezia, hematemesis GENITOURINARY: Denies frequency, urgency, nocturia, hematuria or incontinence (Storage/Irritative symptoms.) Low urinary stream, straining to void, urinary intermittency or hesitancy, splitting of the voiding stream, terminal dribbling. ENDOCRINOLOGIC: Denies polyuria, polydipsia, polyphagia or heat/cold intolerances. HEMATOLOGIC: Denies thrombophilia/previous clots, or coagulopathy/bleeding disorders. ONCOLOGIC: Denies personal history of malignancy. DERMATOLOGIC: Denies rashes or pruritus. PSYCHIATRIC: Denies any suicidal or homicidal ideation. Denies hallucinations. PHYSICAL EXAM GENERAL APPEARANCE: The patient is awake, alert, and oriented, in no acute cardiopulmonary distress. NEUROLOGICAL: Cranial nerves II-XII grossly intact. Motor is 5/5 in bilateral upper and lower extremities proximal to distal. No sensory deficits. HEENT: Face is symmetric. Pupils are equal and reactive. Extraocular movements are intact. NECK: Supple. No JVD. No thyromegaly. No submental, submandibular, pre- /postauricular, occipital or supraclavicular lymphadenopathy. CHEST: Normal chest expansion. No Telemetry. LUNGS: Absence of any rales, rhonchi or any wheezing. CARDIOVASCULAR: Regular. S1 and S2 normal. No appreciable rubs, murmurs or gallops. ABDOMEN: Soft, tenderness to palpation in the right lower quadrant. Abdomen is soft to palpation. No guarding present : Deferred. No [place]. EXTREMITIES: Non-edematous and not cyanotic. No clubbing. Good capillary refill. SKIN: No skin breakdown. Vital Signs (last 8hr) Date Time Temp Pulse Resp B/P (MAP) Pulse Ox O2 Delivery O2 Flow Rate FiO2 11/11/25 11:22 98.1 77 19 116/73 97 Room Air 11/11/25 08:11 98.1 91 17 114/55 97 Room Air 11/11/25 08:00 97 Room Air* 0 21 LABS: Laboratory: Test 11/11/25 10:00 11/10/25 05:47 Range/Units White Blood Count 9.0 4.8-10.8 K/uL Red Blood Count 3.47 L 4.00-5.50 MIL/uL Hemoglobin 10.1 L 12.0-16.0 g/dL Hematocrit 31.0 L 36-48 % Mean Corpuscular Volume 89.3 79-99 fL Mean Corpuscular Hemoglobin 29.1 27.0-33.0 pg Mean Corpuscular Hemoglobin Concent 32.6 32.0-36.0 g/dL Red Cell Distribution Width 12.4 11.0-15.5 % Platelet Count 270 130-400 K/uL Mean Platelet Volume 10.0 7.5-10.5 fL Nucleated Red Blood Cells 0.0 0.0-0.19 % Sodium Level 138 136-145 mmol/L Potassium Level 3.6 3.5-5.1 mmol/L Chloride Level 105 101-111 mmol/L Carbon Dioxide Level 22 21-32 mmol/L Blood Urea Nitrogen 8 7-18 mg/dL Creatinine 0.9 0.5-1.0 mg/dL Glomerular Filtration Rate Calc 86 >90 mL/min Random Glucose 98 70-105 mg/dL Total Calcium 8.4 L 8.5-10.1 mg/dL Magnesium Level 1.80 1.80-2.40 mg/dL Total Bilirubin 0.4 0.2-1.0 mg/dL Aspartate Amino Transf (AST/SGOT) 17 10-37 U/L Alanine Aminotransferase (ALT/SGPT) 27 12-78 U/L Alkaline Phosphatase 76 50-136 U/L Total Protein 6.8 6.0-8.3 g/dL Albumin 2.5 L 3.5-5.0 g/dL Current Medications Medications (Trade) Dose Ordered Sig/Lea Route PRN Reason Start Time Stop Time Status Last Admin Dose Admin Acetaminophen (acetaMINOPHEN 1,000MG/100ML) 1,000 mg NOW IVPB 11/07/25 19:00 11/07/25 23:30 DC 11/07/25 18:56 1,000 MG Famotidine (Pepcid 20mg Vial) 20 mg BID IV 11/07/25 21:00 12/07/25 20:59 11/11/25 07:53 20 MG Fentanyl Citrate (FENTanyl CITRate PF 50 MCG/ 1 ML 2ML VIAL) 25 mcg Q5MIN PRN IVP PAIN LEVEL 7 TO 10 12/13/25 17:00 11/07/25 19:41 DC Fluconazole/ Sodium Chloride 100 ml @ 100 mls/hr Q24H IV 11/09/25 13:30 12/09/25 13:29 11/11/25 12:08 100 MLS/HR Ketorolac Tromethamine (toRADol) 15 mg Q6H PRN IV MODERATE PAIN (4-6) 11/07/25 14:00 11/12/25 13:59 11/08/25 20:30 15 MG Ketorolac Tromethamine (toRADol) 30 mg AD PRN IV PAIN LEVEL 1 TO 3 11/07/25 17:00 11/07/25 19:41 DC Magnesium Sulfate 50 ml @ 0 mls/hr PROTOCOL PRN IV HYPOMAGNESEMIA 11/10/25 08:30 12/10/25 08:29 11/11/25 06:28 25 MLS/HR Metoclopramide HCl (regLAN 10MG IV) 10 mg ACHS IVP 11/08/25 21:00 12/08/25 20:59 11/11/25 11:17 10 MG Metoclopramide HCl (regLAN 10MG IV) 10 mg AD PRN IVP NAUSEA/VOMITING 11/07/25 17:00 11/07/25 19:41 DC Morphine Sulfate (morPHINE 2MG SYG) 2 mg AD PRN IVP PAIN LEVEL 4 TO 6 11/07/25 17:00 11/07/25 19:41 DC Morphine Sulfate (morPHINE 2MG SYG) 2 mg Q6H PRN IVP SEVERE PAIN (7-10) 11/07/25 14:00 11/14/25 13:59 11/08/25 08:59 2 MG Naloxone HCl (NARcan 0.4mg/1 mL) 0.1 mg AD PRN IVP RESPIRATORY SYMPTOMS 11/07/25 23:55 11/07/25 19:41 DC Ondansetron HCl (zoFRAN 4MG INJ) 4 mg AD PRN IVP NAUSEA/VOMITING 11/07/25 17:00 11/07/25 19:41 DC Ondansetron HCl (zoFRAN 4MG INJ) 4 mg Q6H PRN IVP NAUSEA/VOMITING 11/07/25 14:00 12/07/25 13:59 11/08/25 18:06 4 MG Piperacillin Sod/ Tazobactam Sod (Zosyn 3.375gm+NS 50ml) 3.375 gm ZOSY8 IVPB 11/07/25 21:00 11/17/25 20:59 11/11/25 12:08 3.375 GM Potassium Chloride 100 ml @ 100 mls/hr AD PRN IV POTASSIUM PROTOCOL 11/07/25 14:00 12/07/25 13:59 Potassium Chloride (K-Dur/Klor-Con 20meq) 20 meq AD PRN PO POTASSIUM PROTOCOL 11/07/25 14:00 12/07/25 13:59 11/11/25 06:27 20 MEQ Potassium Chloride (KCl 10% Elixir 20meq/15ml) 20 meq AD PRN PO POTASSIUM PROTOCOL 11/07/25 14:00 12/07/25 13:59 Promethazine HCl (Phenergan) 25 mg AD PRN IM NAUSEA/VOMITING 11/07/25 17:00 11/07/25 19:41 DC Sodium Chloride 1,000 ml @ 100 mls/hr Q10H IV 11/07/25 14:00 12/07/25 13:59 11/10/25 20:09 100 MLS/HR Sodium Chloride (NS 50ml) 50 ml AD IV 11/07/25 20:00 11/07/25 13:52 DC DIAGNOSTICS / RADIOLOGY: [ ] ASSESSMENT: Sepsis secondary to acute appendicitis POA (tachycardia, leukocytosis) Acute appendicitis status post appendectomy 11/07/2025 Obesity BMI 41.2 PLAN: remains admitted to medical floor, comfortable, awake, following commands, feels weak, hemodynamically stable, afebrile, saturating normal on room air. Patient is still having serosanguineous drainage hormone moderate amount from drain. Cultures from the appendix positive for E coli. Continue broad-spectrum IV antibiotics. Continue to follow general surgery and ID input recommendation. Discussed with case management. NEURO: Minimize central acting medications as possible. Fall Precautions. Well lighted room through the day and minimize interruptions through the night to prevent acute delirium. PULMONARY: Supplemental 02 as needed BiPAP as necessary, for respiratory distress Titrate Fio2 to keep Spo2 > or = 90% DuoNebs and CPT as needed IS hourly while awake for pulmonary hygiene prn Out of bed to chair as tolerated Maintain aspiration precautions at all times CARDIOVASCULAR: Follow hemodynamics. Vital signs per facility protocol GI & NUTRITION: Continue nutritional support Aspirations precautions Prokinetic agents and laxatives as needed KIDNEYS & ELECTROLYTES: Strict monitoring of intake and output Daily weights Avoid nephrotoxic agents Monitor electrolytes and replace as needed Goal urine output of 30mL/hr or 0.5mL/kg/hr Medications to be dosed according to renal function. Avoid contrast if possible ENDOCRINE: Maintain blood glucose between 100-180 at all times. Insulin sliding scale for blood glucose management Hypoglycemia and hyperglycemia protocol in place INFECTIOUS DISEASE: Trend temperature, WBC and procalcitonin level Follow cultures, deescalate antibiotics as soon as possible. Panculture if new onset fever HEMATOLOGY & COAGULATION: Monitor H&H. Keep Hgb > 7 Transfuse 1 unit of PRBC for Hgb < 7 Transfuse 1 pack of platelets of platelets < 20, 000 Watch for any signs and symptoms of bleeding SKIN: Pressure ulcer prevention per facility protocol Specialty mattress as needed ORTHO/REHAB Continue PT/OT PRN: MEDICATIONS Tylenol 650 mg po every 4 hrs for fever zofran 4 mg IV every 6 hrs for n/v Hydralazine 5 mg IV every 4 hrs systolic pressure > 160 bowel regiment: lactulose 20 gm PO BID PRN constipation Supportive measures: Continue GI and DVT prophylaxis Disposition: Pending improvement in clinical condition All questions answered time spent: > 35 min SUSAN WAGNER MD Nov 11, 2025 13:44
--- NOTE | 2025-11-11 18:48 | PN ---
INFECTIOUS DISEASE PROGRESS NOTE Date of Service: Nov 11, 2025 SUBJECTIVE: Patient is status post laparoscopic appendectomy on 11/07/2025. Patient was seen at bedside in room 314. Patient remaining afebrile, temperature is 98.1 and the WBC has trended down to 9.0. Per report patient did not meet criteria for outpatient IV at [facility]. We will continue on Zosyn and fluconazole and re-evaluate on Sunday. PHYSICAL EXAM EYES: Anicteric. Pupils equal and reactive. HENT: No oral thrush seen, moist Oral mucosa. NECK: Supple, no JVD or thyromegaly. LUNGS: Good air entry. No rales, no rhonchi. CARDIOVASCULAR: S1, S2 regular. No murmur heard. ABDOMEN: Soft, bowel sounds present. Tenderness on palpation. Surgical incisions. CENTRAL NERVOUS SYSTEM: Awake, alert, oriented x 3. SKIN: No rashes, no swelling. LYMPHATICS: No peripheral lymphadenopathy. MUSCULOSKELETAL: No joint swelling, erythema or tenderness. EXTREMITIES: No cyanosis or clubbing. BACK: No deformity, no pressure ulcer. GENITOURINARY: No dysuria or hematuria. Vital Sign (Last 12 Hours) 11/11/25 11/11/25 11/11/25 11/11/25 08:00 08:11 11:22 15:44 Temp 98.1 98.1 Pulse 91 77 95 Resp 17 19 18 B/P (MAP) 114/55 116/73 133/83 Pulse Ox 97 97 97 98 O2 Delivery Room Air* Room Air Room Air Room Air O2 Flow Rate 0 FiO2 21 Intake & Output (last 24hrs) 11/10/25 11/10/25 11/11/25 15:00 23:00 07:00 Intake Total 944.0 ml 40 ml Output Total 40 ml Balance 904.0 ml 40 ml LABS: Laboratory: Test 11/11/25 10:00 11/10/25 05:47 Range/Units White Blood Count 9.0 4.8-10.8 K/uL Red Blood Count 3.47 L 4.00-5.50 MIL/uL Hemoglobin 10.1 L 12.0-16.0 g/dL Hematocrit 31.0 L 36-48 % Mean Corpuscular Volume 89.3 79-99 fL Mean Corpuscular Hemoglobin 29.1 27.0-33.0 pg Mean Corpuscular Hemoglobin Concent 32.6 32.0-36.0 g/dL Red Cell Distribution Width 12.4 11.0-15.5 % Platelet Count 270 130-400 K/uL Mean Platelet Volume 10.0 7.5-10.5 fL Nucleated Red Blood Cells 0.0 0.0-0.19 % Sodium Level 138 136-145 mmol/L Potassium Level 3.6 3.5-5.1 mmol/L Chloride Level 105 101-111 mmol/L Carbon Dioxide Level 22 21-32 mmol/L Blood Urea Nitrogen 8 7-18 mg/dL Creatinine 0.9 0.5-1.0 mg/dL Glomerular Filtration Rate Calc 86 >90 mL/min Random Glucose 98 70-105 mg/dL Total Calcium 8.4 L 8.5-10.1 mg/dL Magnesium Level 1.80 1.80-2.40 mg/dL Total Bilirubin 0.4 0.2-1.0 mg/dL Aspartate Amino Transf (AST/SGOT) 17 10-37 U/L Alanine Aminotransferase (ALT/SGPT) 27 12-78 U/L Alkaline Phosphatase 76 50-136 U/L Total Protein 6.8 6.0-8.3 g/dL Albumin 2.5 L 3.5-5.0 g/dL ASSESSMENT: Acute appendicitis with perforated appendix, status post laparoscopic appendectomy on 11/07/2025. E coli infection. Leukocytosis, resolved. Hypertension, not on medication. PLAN: Continue Zosyn. Continue fluconazole. Patient did not meet criteria for outpatient IV antibiotic, we will re-evaluate patient on Sunday. This case was reviewed and discussed with my supervising physician Dr. Ramirez and the above assessment and plan was formulated and agreed upon. ATTESTATION BY PHYSICIAN I have seen and examined the patient. I reviewed the documentation, medical decision making, and treatment plan as noted by the mid-level provider above. I agree with the findings and plan of care. FARHAD RAMIREZ MD, [facility] Nov 11, 2025 18:48
[2025-11-12] VITALS: BP 128/74; PULSE 87; RESP 17; TEMP 98.2
[2025-11-12 04:00] VITALS: BP 120/72; PULSE 81; RESP 18; TEMP 97.9
[2025-11-12 08:00] VITALS: BP 114/84; PULSE 89; RESP 20; TEMP 98.3; O2SAT 97
--- NOTE | 2025-11-12 09:36 | PN ---
INFECTIOUS DISEASE PROGRESS NOTE Date of Service: Nov 12, 2025 SUBJECTIVE: Patient is being seen at bedside in room 314. Patient is s/p laparoscopic appendectomy on 11/07/2025. Patient remaining afebrile this morning, temperature is 98.2 and a WBC of 9.0. The final appendix abscess culture final results came back positive for E coli and Bacteroides fragilis. We will continue on Zosyn and fluconazole and re-evaluate patient tomorrow. Plan is for discharged patient on oral antibiotics. PHYSICAL EXAM EYES: Anicteric. Pupils equal and reactive. HENT: No oral thrush seen, moist Oral mucosa. NECK: Supple, no JVD or thyromegaly. LUNGS: Good air entry. No rales, no rhonchi. CARDIOVASCULAR: S1, S2 regular. No murmur heard. ABDOMEN: Soft, bowel sounds present. Tenderness on palpation. Surgical incisions. CENTRAL NERVOUS SYSTEM: Awake, alert, oriented x 3. SKIN: No rashes, no swelling. LYMPHATICS: No peripheral lymphadenopathy. MUSCULOSKELETAL: No joint swelling, erythema or tenderness. EXTREMITIES: No cyanosis or clubbing. BACK: No deformity, no pressure ulcer. GENITOURINARY: No dysuria or hematuria. Vital Sign (Last 12 Hours) 11/12/25 11/12/25 11/12/25 00:00 04:00 08:00 Temp 98.2 97.9 98.2 Pulse 87 81 89 Resp 17 18 20 B/P (MAP) 128/74 120/72 114/84 Pulse Ox 96 98 98 O2 Delivery Room Air Room Air Room Air Intake & Output (last 24hrs) 11/11/25 11/11/25 11/12/25 15:00 23:00 07:00 Output Total 40 ml 30 ml Balance -40 ml -30 ml LABS: Laboratory: Test 11/11/25 10:00 Range/Units White Blood Count 9.0 4.8-10.8 K/uL Red Blood Count 3.47 L 4.00-5.50 MIL/uL Hemoglobin 10.1 L 12.0-16.0 g/dL Hematocrit 31.0 L 36-48 % Mean Corpuscular Volume 89.3 79-99 fL Mean Corpuscular Hemoglobin 29.1 27.0-33.0 pg Mean Corpuscular Hemoglobin Concent 32.6 32.0-36.0 g/dL Red Cell Distribution Width 12.4 11.0-15.5 % Platelet Count 270 130-400 K/uL Mean Platelet Volume 10.0 7.5-10.5 fL Nucleated Red Blood Cells 0.0 0.0-0.19 % DIAGNOSTIC/RADIOLOGY: PATIENT: KATERIN VILLAFANA ACCT: [id number] LOC: [facility] U: [id number] AGE/SX: 35/F ROOM: [facility] RE11/07/[address]: INDIA ELIZONDO MD : 1990 BED: 1 DIS: STATUS: ADM IN TLOC: SPEC: [id number] CHELY: 11/07/25 STATUS: COMP REQ: [id number] RECD: 11/07/[address]: NU KNOX MD SOURCE: APPENDIX ENTR: 11/07/[address]: INDIA ELIZONDO MD SPDESC: ABSCESS SELF,REFERRAL ORDERED: [place] CULTURE, AEROBIC CULTURE COMMENTS: Has specimen been collected/obtained? Y Has specimen been collected/obtained? Y Has specimen been collected/obtained? Y Procedure Result Yue Date-Time ANAEROBIC CULTURE Final 11/11/25-41 MRL COLONY DESCRIPTION: REPORT 1: NO ANAEROBES AT 16-23 HOURS; STUDIES TO CONTINUE REPORT 2: NO ANAEROBES AT 36-47 HOURS; STUDIES TO CONTINUE REPORT 3: POSSIBLE ANAEROBE ISOLATED GRAM NEGATIVE RODS IDENTIFICATION TO FOLLOW BETA LACTAMASE POSITIVE NO FURTHER WORK-UP DONE BACTEROIDES FRAGILIS Test(s) performed by: [facility] [address] [place] [address] CONTINUED ON NEXT PAGE RUN DATE: 11/11/25 [facility] PAGE 2 RUN TIME: [id number] [address], [place] [address] Department of Laboratories [facility] # [id number] Tape Duplicator: Patty Fang DO Specimen Report SPEC: [id number] PATIENT: KATERIN VILLAFANA [id number] (Continued) Procedure Result Yue Date-Time AEROBIC CULTURE Final 11/10/25-0558 MRL COLONY DESCRIPTION: REPORT 1: 2+ GRAM NEGATIVE RODS IDENTIFICATION AND SENSITIVITY TO FOLLOW REPORT 2: NO FURTHER WORK-UP DONE ESCHERICHIA COLI E COLI M.I.C. RX --------- ---- AMPICILLIN <=8 S AZTREONAM <=4 S CEFAZOLIN <=2 S CEFTAZIDIME/AVIBACTAM <=8 S CIPROFLOXACIN >2 R GENTAMICIN <=2 S LEVOFLOXACIN >4 R MEROPENEM <=1 S PIPERACILLIN/TAZOBACTAM <=8 S TRIMETHOPRIM/SUFLAMETHOXAZOLE >2/38 R ASSESSMENT: Acute appendicitis with perforated appendix, status post laparoscopic appendectomy on 11/07/2025. E coli infection. Leukocytosis, resolved. Hypertension, not on medication. PLAN: Continue Zosyn. Continue fluconazole. Plan is to discharge patient on oral antibiotics. We will re-evaluate patient tomorrow. This case was reviewed and discussed with my supervising physician Dr. Ramirez and the above assessment and plan was formulated and agreed upon. ATTESTATION BY PHYSICIAN I have seen and examined the patient. I reviewed the documentation, medical decision making, and treatment plan as noted by the mid-level provider above. I agree with the findings and plan of care. FARHAD RAMIREZ MD, [facility] Nov 12, 2025 09:36
[2025-11-12 12:34] VITALS: BP 109/60; PULSE 86; RESP 18; TEMP 99.6
--- NOTE | 2025-11-12 12:42 | PN ---
[facility] PROGRESS NOTE Date of Service: Nov 12, 2025 Time of Service: 12:40 SUBJECTIVE: 11/08 patient remains admitted to the medical floor, underwent appendectomy 11/07/2025, she feels weak, passing gas but no bowel. Hemodynamically stable, afebrile, saturating normal on room air. Hemoglobin 10.5, hematocrit 31.1, WBC of 18.7. Patient currently on Zosyn IV. Continue to follow a.m. labs. Follow surgical input recommendation. 11/09 patient remains admitted to medical floor, comfortably in bed, alert oriented x3, passing gas but no bowel movement yet. Hemodynamically stable, afebrile, saturating normal on room air. Leukocytosis improving, WBC today 14.9, down from 18.7. Mild drop in hemoglobin to 10.2 from 12.2, with a hematocrit 30.7 from 37.5. Continue to follow surgical input and recommendation. Follow repeat CBC today, transfuse as needed. Follow a.m. labs. Discussed with the patient, in agreement. 11/10 remains admitted to medical floor, comfortable, awake, following commands, feels weak, hemodynamically stable, afebrile, saturating normal on room air. Leukocytosis improved, WBC today 10.7, hemoglobin 10.0, hematocrit 30.4. Cultures from the appendix positive for E coli. Continue broad-spectrum IV antibiotics. Continue to follow general surgery and ID input recommendation. Discussed with case management. 11/11 remains admitted to medical floor, comfortable, awake, following commands, feels weak, hemodynamically stable, afebrile, saturating normal on room air. Patient is still having serosanguineous drainage hormone moderate amount from drain. Cultures from the appendix positive for E coli. Continue broad-spectrum IV antibiotics. Continue to follow general surgery and ID input recommendation. Discussed with case management. 11/12 remains admitted to medical floor, comfortable, awake, following commands, feels weak, hemodynamically stable, afebrile, saturating normal on room air. Patient comes surgical standpoint to be discharged home and follow up in two weeks. NATALIIA drain to be removed at less than 40 mL in 24 hour. Continue IV antibiotics per ID recommendations. REVIEW OF SYSTEMS CONSTITUTIONAL: Denies night sweats. No unintentional weight loss reported. Positive for fever, chills NEUROLOGICAL: Denies headache, amaurosis fugax, motor weakness, sensory deficit, vertigo/spinning sensation, gait abnormalities, or tremors. ENT: No hearing loss, otalgia, otorrhea, rhinitis, rhinorrhea, hoarseness, or sore throat. CARDIOVASCULAR: Denies any exertional angina, dyspnea on exertion, orthopnea, paroxysmal nocturnal dyspnea, palpitations, life-threatening arrhythmias, claudication. PULMONARY: Denies any shortness of breath, cough, phlegm/sputum, hemoptysis, pleuritic chest pain. GASTROINTESTINAL: Positive for abdominal pain, nausea, vomiting. Denied any diarrhea, constipation, melena, hematochezia, hematemesis GENITOURINARY: Denies frequency, urgency, nocturia, hematuria or incontinence (Storage/Irritative symptoms.) Low urinary stream, straining to void, urinary intermittency or hesitancy, splitting of the voiding stream, terminal dribbling. ENDOCRINOLOGIC: Denies polyuria, polydipsia, polyphagia or heat/cold intolerances. HEMATOLOGIC: Denies thrombophilia/previous clots, or coagulopathy/bleeding disorders. ONCOLOGIC: Denies personal history of malignancy. DERMATOLOGIC: Denies rashes or pruritus. PSYCHIATRIC: Denies any suicidal or homicidal ideation. Denies hallucinations. PHYSICAL EXAM GENERAL APPEARANCE: The patient is awake, alert, and oriented, in no acute cardiopulmonary distress. NEUROLOGICAL: Cranial nerves II-XII grossly intact. Motor is 5/5 in bilateral upper and lower extremities proximal to distal. No sensory deficits. HEENT: Face is symmetric. Pupils are equal and reactive. Extraocular movements are intact. NECK: Supple. No JVD. No thyromegaly. No submental, submandibular, pre- /postauricular, occipital or supraclavicular lymphadenopathy. CHEST: Normal chest expansion. No Telemetry. LUNGS: Absence of any rales, rhonchi or any wheezing. CARDIOVASCULAR: Regular. S1 and S2 normal. No appreciable rubs, murmurs or gallops. ABDOMEN: Soft, tenderness to palpation in the right lower quadrant. Abdomen is soft to palpation. No guarding present : Deferred. No Inman. EXTREMITIES: Non-edematous and not cyanotic. No clubbing. Good capillary refill. SKIN: No skin breakdown. Vital Signs (last 8hr) Date Time Temp Pulse Resp B/P (MAP) Pulse Ox O2 Delivery O2 Flow Rate FiO2 11/12/25 12:34 99.7 86 18 109/60 97 Room Air 11/12/25 08:00 98.2 89 20 114/84 98 Room Air LABS: Laboratory: Test 11/11/25 10:00 Range/Units White Blood Count 9.0 4.8-10.8 K/uL Red Blood Count 3.47 L 4.00-5.50 MIL/uL Hemoglobin 10.1 L 12.0-16.0 g/dL Hematocrit 31.0 L 36-48 % Mean Corpuscular Volume 89.3 79-99 fL Mean Corpuscular Hemoglobin 29.1 27.0-33.0 pg Mean Corpuscular Hemoglobin Concent 32.6 32.0-36.0 g/dL Red Cell Distribution Width 12.4 11.0-15.5 % Platelet Count 270 130-400 K/uL Mean Platelet Volume 10.0 7.5-10.5 fL Nucleated Red Blood Cells 0.0 0.0-0.19 % Current Medications Medications (Trade) Dose Ordered Sig/Lea Route PRN Reason Start Time Stop Time Status Last Admin Dose Admin Acetaminophen (acetaMINOPHEN 1,000MG/100ML) 1,000 mg NOW IVPB 11/07/25 19:00 11/07/25 23:30 DC 11/07/25 18:56 1,000 MG Famotidine (Pepcid 20mg Vial) 20 mg BID IV 11/07/25 21:00 12/07/25 20:59 11/12/25 08:41 20 MG Fentanyl Citrate (FENTanyl CITRate PF 50 MCG/ 1 ML 2ML VIAL) 25 mcg Q5MIN PRN IVP PAIN LEVEL 7 TO 10 11/07/25 17:00 11/07/25 19:41 DC Fluconazole/ Sodium Chloride 100 ml @ 100 mls/hr Q24H IV 11/09/25 13:30 12/09/25 13:29 11/12/25 12:39 100 MLS/HR Ketorolac Tromethamine (toRADol) 15 mg Q6H PRN IV MODERATE PAIN (4-6) 11/07/25 14:00 11/12/25 13:59 11/08/25 20:30 15 MG Ketorolac Tromethamine (toRADol) 30 mg AD PRN IV PAIN LEVEL 1 TO 3 11/07/25 17:00 11/07/25 19:41 DC Magnesium Sulfate 50 ml @ 0 mls/hr PROTOCOL PRN IV HYPOMAGNESEMIA 11/10/25 08:30 12/10/25 08:29 11/11/25 06:28 25 MLS/HR Metoclopramide HCl (regLAN 10MG IV) 10 mg ACHS IVP 11/08/25 21:00 12/08/25 20:59 11/12/25 10:56 10 MG Metoclopramide HCl (regLAN 10MG IV) 10 mg AD PRN IVP NAUSEA/VOMITING 11/07/25 17:00 11/07/25 19:41 DC Morphine Sulfate (morPHINE 2MG SYG) 2 mg AD PRN IVP PAIN LEVEL 4 TO 6 11/07/25 17:00 11/07/25 19:41 DC Morphine Sulfate (morPHINE 2MG SYG) 2 mg Q6H PRN IVP SEVERE PAIN (7-10) 11/07/25 14:00 11/14/25 13:59 11/11/25 20:08 2 MG Naloxone HCl (NARcan 0.4mg/1 mL) 0.1 mg AD PRN IVP RESPIRATORY SYMPTOMS 11/07/25 23:55 11/07/25 19:41 DC Ondansetron HCl (zoFRAN 4MG INJ) 4 mg AD PRN IVP NAUSEA/VOMITING 11/07/25 17:00 11/07/25 19:41 DC Ondansetron HCl (zoFRAN 4MG INJ) 4 mg Q6H PRN IVP NAUSEA/VOMITING 11/07/25 14:00 12/07/25 13:59 11/08/25 18:06 4 MG Piperacillin Sod/ Tazobactam Sod (Zosyn 3.375gm+NS 50ml) 3.375 gm ZOSY8 IVPB 11/07/25 21:00 11/17/25 20:59 11/12/25 12:40 3.375 GM Potassium Chloride 100 ml @ 100 mls/hr AD PRN IV POTASSIUM PROTOCOL 11/07/25 14:00 12/07/25 13:59 Potassium Chloride (K-Dur/Klor-Con 20meq) 20 meq AD PRN PO POTASSIUM PROTOCOL 11/07/25 14:00 12/07/25 13:59 11/11/25 06:27 20 MEQ Potassium Chloride (KCl 10% Elixir 20meq/15ml) 20 meq AD PRN PO POTASSIUM PROTOCOL 11/07/25 14:00 12/07/25 13:59 Promethazine HCl (Phenergan) 25 mg AD PRN IM NAUSEA/VOMITING 11/07/25 17:00 11/07/25 19:41 DC Sodium Chloride 1,000 ml @ 100 mls/hr Q10H IV 11/07/25 14:00 12/07/25 13:59 11/10/25 20:09 100 MLS/HR Sodium Chloride (NS 50ml) 50 ml AD IV 11/07/25 20:00 11/07/25 13:52 DC DIAGNOSTICS / RADIOLOGY: [ ] ASSESSMENT: Sepsis secondary to acute appendicitis POA (tachycardia, leukocytosis) Acute appendicitis status post appendectomy 11/07/2025 Obesity BMI 41.2 PLAN: remains admitted to medical floor, comfortable, awake, following commands, feels weak, hemodynamically stable, afebrile, saturating normal on room air. Patient comes surgical standpoint to be discharged home and follow up in two weeks. NATALIIA drain to be removed at less than 40 mL in 24 hour. Continue IV antibiotics per ID recommendations. NEURO: Minimize central acting medications as possible. Fall Precautions. Well lighted room through the day and minimize interruptions through the night to prevent acute delirium. PULMONARY: Supplemental 02 as needed BiPAP as necessary, for respiratory distress Titrate Fio2 to keep Spo2 > or = 90% DuoNebs and CPT as needed IS hourly while awake for pulmonary hygiene prn Out of bed to chair as tolerated Maintain aspiration precautions at all times CARDIOVASCULAR: Follow hemodynamics. Vital signs per facility protocol GI & NUTRITION: Continue nutritional support Aspirations precautions Prokinetic agents and laxatives as needed KIDNEYS & ELECTROLYTES: Strict monitoring of intake and output Daily weights Avoid nephrotoxic agents Monitor electrolytes and replace as needed Goal urine output of 30mL/hr or 0.5mL/kg/hr Medications to be dosed according to renal function. Avoid contrast if possible ENDOCRINE: Maintain blood glucose between 100-180 at all times. Insulin sliding scale for blood glucose management Hypoglycemia and hyperglycemia protocol in place INFECTIOUS DISEASE: Trend temperature, WBC and procalcitonin level Follow cultures, deescalate antibiotics as soon as possible. Panculture if new onset fever HEMATOLOGY & COAGULATION: Monitor H&H. Keep Hgb > 7 Transfuse 1 unit of PRBC for Hgb < 7 Transfuse 1 pack of platelets of platelets < 20, 000 Watch for any signs and symptoms of bleeding SKIN: Pressure ulcer prevention per facility protocol Specialty mattress as needed ORTHO/REHAB Continue PT/OT PRN: MEDICATIONS Tylenol 650 mg po every 4 hrs for fever zofran 4 mg IV every 6 hrs for n/v Hydralazine 5 mg IV every 4 hrs systolic pressure > 160 bowel regiment: lactulose 20 gm PO BID PRN constipation Supportive measures: Continue GI and DVT prophylaxis Disposition: Pending improvement in clinical condition All questions answered time spent: > 35 min SUSAN WAGNER MD Nov 12, 2025 12:42
--- NOTE | 2025-11-12 15:05 | PN ---
This is a 35-year-old female postop day five for laparoscopic appendectomy with perforated appendicitis Interval history: This 35-year-old female seen in her room resting comfortably Patient continues with the IV fluids and IV antibiotics Patient tolerating diet NATALIIA drainage minimal No other acute events reported at this time Physical exam General: Awake alert and oriented Heart: Regular rate and rhythm} Lungs: Clear to auscultation no distress Abdomen: [Soft, nontender, nondistended NATALIIA in place Assessment : This is 35-year-old female status post appendectomy with perforated appendicitis Plan: From surgical standpoint patient is cleared for discharge once cleared medically Patient will need p.o. antibiotics upon discharge Recommendation will be for one week follow up with Dr. Loera's office NATALIIA drain can be pulled and discharge Dr. Loera to be updated in patient's status and nursing report any further acute events Surgical case has been discussed with my supervising physician in the above plan was formulated and agreed upon We appreciate the hospitalist team for us to participate in patient's care. Greater than 45 minutes of time spent patient, reviewing chart, working on documentation Vitals/Labs Vital Signs Date Time Temp Pulse Resp B/P (MAP) Pulse Ox O2 Delivery O2 Flow Rate FiO2 11/12/25 12:34 99.7 86 18 109/60 97 Room Air 11/11/25 20:00 0 21 Medications Current Medications Sodium Chloride 1,000 ml @ 0 mls/hr ONCE ONCE IV Last administered on 11/07/25at 11:43; Start 11/07/25 at 10:30; Stop 11/07/25 at 10:31; Status DC Morphine Sulfate 2 mg ONCE ONCE IVP Last administered on 11/07/25at 11:43; Start 11/07/25 at 10:30; Stop 11/07/25 at 10:31; Status DC Ondansetron HCl 4 mg ONCE ONCE IVP Last administered on 11/07/25at 11:43; Start 11/07/25 at 10:30; Stop 11/07/25 at 10:31; Status DC Iohexol 75 ml STK-MED ONCE IV; Start 11/07/25 at 11:15; Stop 11/07/25 at 11:15; Status DC Piperacillin Sod/ Tazobactam Sod 3.375 gm ONCE ONCE IVPB Last administered on 11/07/25at 13:41; Start 11/07/25 at 13:30; Stop 11/07/25 at 13:31; Status DC Famotidine 20 mg BID IV Last administered on 11/12/25at 08:41; Start 11/07/25 at 21:00; Stop 12/07/25 at 20:59 Sodium Chloride 1,000 ml @ 100 mls/hr Q10H IV Last administered on 11/10/25at 20:09; Start 11/07/25 at 14:00; Stop 12/07/25 at 13:59 Piperacillin Sod/ Tazobactam Sod 3.375 gm ZOSY8 IVPB Last administered on 11/12/25at 12:40; Start 11/07/25 at 21:00; Stop 11/17/25 at 20:59 Sodium Chloride 50 ml AD IV; Start 11/07/25 at 20:00; Stop 11/07/25 at 13:52; Status DC Morphine Sulfate 2 mg Q6H PRN IVP Last administered on 11/11/25at 20:08; Start 11/07/25 at 14:00; Stop 11/14/25 at 13:59 Ketorolac Tromethamine 15 mg Q6H PRN IV Last administered on 11/08/25at 20:30; Start 11/07/25 at 14:00; Stop 11/12/25 at 13:59; Status DC Potassium Chloride 100 ml @ 100 mls/hr AD PRN IV; Start 11/07/25 at 14:00; Stop 12/07/25 at 13:59 Potassium Chloride 20 meq AD PRN PO; Start 11/07/25 at 14:00; Stop 12/07/25 at 13:59 Potassium Chloride 20 meq AD PRN PO Last administered on 11/11/25at 06:27; Start 11/07/25 at 14:00; Stop 12/07/25 at 13:59 Ondansetron HCl 4 mg Q6H PRN IVP Last administered on 11/08/25at 18:06; Start 11/07/25 at 14:00; Stop 12/07/25 at 13:59 Ondansetron HCl 4 mg AD PRN IVP; Start 11/07/25 at 17:00; Stop 11/07/25 at 19:41; Status DC Metoclopramide HCl 10 mg AD PRN IVP; Start 11/07/25 at 17:00; Stop 11/07/25 at 19:41; Status DC Promethazine HCl 25 mg AD PRN IM; Start 11/07/25 at 17:00; Stop 11/07/25 at 19:41; Status DC Ketorolac Tromethamine 30 mg AD PRN IV; Start 11/07/25 at 17:00; Stop 11/07/25 at 19:41; Status DC Morphine Sulfate 2 mg AD PRN IVP; Start 11/07/25 at 17:00; Stop 11/07/25 at 19:41; Status DC Fentanyl Citrate 25 mcg Q5MIN PRN IVP; Start 11/07/25 at 17:00; Stop 11/07/25 at 19:41; Status DC Naloxone HCl 0.1 mg AD PRN IVP; Start 11/07/25 at 23:55; Stop 11/07/25 at 19:41; Status DC Midazolam HCl 2 mg STK-MED ONCE .ROUTE; Start 11/07/25 at 17:19; Stop 11/07/25 at 17:19; Status DC Bupivacaine HCl 2.5 mg STK-MED ONCE IJ; Start 11/07/25 at 17:27; Stop 11/07/25 at 17:27; Status DC Ketamine HCl 50 mg STK-MED ONCE .ROUTE; Start 11/07/25 at 17:31; Stop 11/07/25 at 17:31; Status DC Propofol 200 mg STK-MED ONCE IV; Start 11/07/25 at 17:31; Stop 11/07/25 at 17:32; Status DC Succinylcholine Chloride 200 mg STK-MED ONCE .ROUTE; Start 11/07/25 at 17:32; Stop 11/07/25 at 17:32; Status DC Rocuronium [place] 50 mg STK-MED ONCE .ROUTE; Start 11/07/25 at 17:32; Stop 11/07/25 at 17:32; Status DC Fentanyl Citrate 100 mcg STK-MED ONCE .ROUTE; Start 11/07/25 at 17:32; Stop 11/07/25 at 17:32; Status DC Phenylephrine HCl 10 mg STK-MED ONCE IV; Start 11/07/25 at 17:45; Stop 11/07/25 at 17:45; Status DC Sodium Chloride 10 ml STK-MED ONCE .ROUTE; Start 11/07/25 at 17:45; Stop 11/07/25 at 17:45; Status DC Cefazolin Sodium 1 gm STK-MED ONCE .ROUTE; Start 11/07/25 at 17:51; Stop 11/07/25 at 17:52; Status DC Ondansetron HCl 4 mg STK-MED ONCE .ROUTE; Start 11/07/25 at 17:53; Stop 11/07/25 at 17:53; Status DC Ketorolac Tromethamine 30 mg STK-MED ONCE .ROUTE; Start 11/07/25 at 18:11; Stop 11/07/25 at 18:11; Status DC Acetaminophen 1,000 mg NOW IVPB Last administered on 11/07/25at 18:56; Start 11/07/25 at 19:00; Stop 11/07/25 at 23:30; Status DC Acetaminophen 100 ml @ As Directed STK-MED ONCE .ROUTE; Start 11/07/25 at 18:44; Stop 11/07/25 at 18:45; Status DC Bupivacaine HCl/ Epinephrine Bitart 50 ml STK-MED ONCE IJ Last administered on 11/07/25at 18:20; Start 11/07/25 at 18:20; Stop 11/08/25 at 11:50; Status DC Metoclopramide HCl 10 mg ACHS IVP Last administered on 11/12/25at 10:56; Start 11/08/25 at 21:00; Stop 12/08/25 at 20:59 Fluconazole/ Sodium Chloride 100 ml @ 100 mls/hr Q24H IV Last administered on 11/12/25at 12:39; Start 11/09/25 at 13:30; Stop 12/09/25 at 13:29 Magnesium Sulfate 50 ml @ 0 mls/hr PROTOCOL PRN IV Last administered on 11/11/25at 06:28; Start 11/10/25 at 08:30; Stop 12/10/25 at 08:29 JAZMYNE FITZGERALD Jr. PAC Nov 12, 2025 15:05
[2025-11-12 15:43] VITALS: BP 135/88; PULSE 84; RESP 20; TEMP 98
[2025-11-12 20:00] VITALS: BP 117/70; PULSE 88; RESP 18; TEMP 98
[2025-11-13] VITALS: BP 127/83; PULSE 77; RESP 18; TEMP 98.3
[2025-11-13 04:00] VITALS: BP 104/57; PULSE 78; RESP 18; TEMP 97.8
[2025-11-13 08:00] VITALS: BP 117/74; PULSE 79; RESP 18; TEMP 97.9
[2025-11-13] MEDS ORDERED: IBUP-2077 PO (09:44)
[2025-11-13 09:53] VITALS: O2SAT 98
[2025-11-13 12:00] VITALS: BP 135/72; PULSE 73; RESP 18; TEMP 97.1
--- NOTE | 2025-11-13 14:21 | PN ---
INFECTIOUS DISEASE PROGRESS NOTE Date of Service: Nov 13, 2025 SUBJECTIVE: This 35-year-old female patient is being examined today at bedside. She is awake, alert and oriented x3. No chest pain or shortness on breath. She is in no respiratory distress. The final appendix abscess culture final results came back positive for E coli and Bacteroides fragilis. WBC of 9. She is currently on Zosyn and fluconazole. Once patient is ready to be discharged patient will be going home on oral Augmentin and fluconazole. PHYSICAL EXAM EYES: Anicteric. Pupils equal and reactive. HENT: No oral thrush seen, moist Oral mucosa. NECK: Supple, no JVD or thyromegaly. LUNGS: Good air entry. No rales, no rhonchi. CARDIOVASCULAR: S1, S2 regular. No murmur heard. ABDOMEN: Soft, bowel sounds present. Tenderness on palpation. Surgical incisions. CENTRAL NERVOUS SYSTEM: Awake, alert, oriented x 3. SKIN: No rashes, no swelling. LYMPHATICS: No peripheral lymphadenopathy. MUSCULOSKELETAL: No joint swelling, erythema or tenderness. EXTREMITIES: No cyanosis or clubbing. BACK: No deformity, no pressure ulcer. GENITOURINARY: No dysuria or hematuria. Vital Sign (Last 12 Hours) 11/13/25 11/13/25 04:00 08:00 Temp 97.9 97.9 Pulse 78 79 Resp 18 18 B/P (MAP) 104/57 117/74 Pulse Ox 96 98 O2 Delivery Room Air Room Air Intake & Output (last 24hrs) 11/12/25 11/12/25 11/13/25 15:00 23:00 07:00 Intake Total 550 ml 350.0 ml 1050.0 ml Output Total 40 ml 20 ml Balance 550 ml 310.0 ml 1030.0 ml LABS: DIAGNOSTIC/RADIOLOGY: PATIENT: KATERIN VILLAFANA ACCT: [id number] LOC: [facility] U: [id number] AGE/SX: 35/F ROOM: 314 RE11/07/[address]: INDIA ELIZONDO MD : 1990 BED: 1 DIS: STATUS: ADM IN TLOC: SPEC: [id number] CHELY: 11/07/25 STATUS: COMP REQ: [id number] RECD: 11/07/[address]: NU KNOX MD SOURCE: APPENDIX ENTR: 11/07/[address]: INDIA ELIZONDO MD SPDESC: ABSCESS SELF,REFERRAL ORDERED: [place] CULTURE, AEROBIC CULTURE COMMENTS: Has specimen been collected/obtained? Y Has specimen been collected/obtained? Y Has specimen been collected/obtained? Y Procedure Result Yue Date-Time ---- -------- ANAEROBIC CULTURE Final 11/11/25-09 [facility] COLONY DESCRIPTION: REPORT 1: NO ANAEROBES AT 16-23 HOURS; STUDIES TO CONTINUE REPORT 2: NO ANAEROBES AT 36-47 HOURS; STUDIES TO CONTINUE REPORT 3: POSSIBLE ANAEROBE ISOLATED GRAM NEGATIVE RODS IDENTIFICATION TO FOLLOW BETA LACTAMASE POSITIVE NO FURTHER WORK-UP DONE BACTEROIDES FRAGILIS Test(s) performed by: [facility] [address] [place] [address] CONTINUED ON NEXT PAGE RUN DATE: 11/11/25 [facility] PAGE 2 RUN TIME: [phone] [address], [place] [address] Department of Laboratories CLIA # [id number] Attending Pathologist: Patty Fang DO Specimen Report SPEC: [id number] PATIENT: KATERIN VILLAFANA [id number] (Continued) Procedure Result Yue Date-Time AEROBIC CULTURE Final 11/10/25-0558 [facility] COLONY DESCRIPTION: REPORT 1: 2+ GRAM NEGATIVE RODS IDENTIFICATION AND SENSITIVITY TO FOLLOW REPORT 2: NO FURTHER WORK-UP DONE ESCHERICHIA COLI E COLI M.I.C. RX --------- ---- AMPICILLIN <=8 S AZTREONAM <=4 S CEFAZOLIN <=2 S CEFTAZIDIME/AVIBACTAM <=8 S CIPROFLOXACIN >2 R GENTAMICIN <=2 S LEVOFLOXACIN >4 R MEROPENEM <=1 S PIPERACILLIN/TAZOBACTAM <=8 S TRIMETHOPRIM/SUFLAMETHOXAZOLE >2/38 R ASSESSMENT: Acute appendicitis with perforated appendix, status post laparoscopic appendectomy on 11/07/2025. E coli infection. Leukocytosis, resolved. Hypertension, not on medication. PLAN: Continue Zosyn. Continue fluconazole. Plan is to discharge patient on oral antibiotics. Augmentin and fluconazole p.o. once ready to be discharged. Continue pain management This case was reviewed and discussed with my supervising physician Dr. Biswas and the above assessment and plan was formulated and agreed upon. ANA CHENG [employer] Nov 13, 2025 14:21
--- NOTE | 2025-11-13 14:43 | DS ---
Discharge Summary Hospital Course Summary: The patient initially admitted to the hospital 11/24/2025 with the following history of present illness: 35-year-old female with no significant past medical history who presented to the hospital secondary to abdominal pain. Patient states her abdominal pain started around 4-5 days ago and primarily located in the right lower quadrant. Her pain got worse yesterday and she had episodes of nausea and vomiting at home. She denied any changes in her bowel movement and denied any changes in her urination. She Noted fever, chills at home. She had seen her primary care provider last week who had obtain the abdominal ultrasound. She did not receive any results on-call. Secondary to non improving pain patient thereafter came to the hospital for further evaluation. She denies any cardiac history. Denied any chest pain, shortness of breath. Labs Were notable for white count of 18.7, hemoglobin was 12.2, platelet count was 249 K, sodium was 137, potassium was 4.0, creatinine was 0.9, serum was negative. Patient underwent a CT abdomen pelvis which showed findings concerning for acute appendicitis. There was small amount of free fluid in the abdomen. General surgery was consulted in the ER who recommended patient to remain NPO for now. Tentative plan for surgery today. HOSPITAL COURSE 11/08 patient remains admitted to the medical floor, underwent appendectomy 11/07/2025, she feels weak, passing gas but no bowel. Hemodynamically stable, afebrile, saturating normal on room air. Hemoglobin 10.5, hematocrit 31.1, WBC of 18.7. Patient currently on Zosyn IV. Continue to follow a.m. labs. Follow surgical input recommendation. 11/09 patient remains admitted to medical floor, comfortably in bed, alert oriented x3, passing gas but no bowel movement yet. Hemodynamically stable, afebrile, saturating normal on room air. Leukocytosis improving, WBC today 14.9, down from 18.7. Mild drop in hemoglobin to 10.2 from 12.2, with a hematocrit 30.7 from 37.5. Continue to follow surgical input and recommendation. Follow repeat CBC today, transfuse as needed. Follow a.m. labs. Discussed with the patient, in agreement. 11/10 remains admitted to medical floor, comfortable, awake, following commands, feels weak, hemodynamically stable, afebrile, saturating normal on room air. Leukocytosis improved, WBC today 10.7, hemoglobin 10.0, hematocrit 30.4. Cultures from the appendix positive for E coli. Continue broad-spectrum IV anti biotics. Continue to follow general surgery and ID input recommendation. Discussed with case management. 11/11 remains admitted to medical floor, comfortable, awake, following commands, feels weak, hemodynamically stable, afebrile, saturating normal on room air. Patient is still having serosanguineous drainage hormone moderate amount from drain. Cultures from the appendix positive for E coli. Continue broad-spectrum IV antibiotics. Continue to follow general surgery and ID input recommendation. Discussed with case management. 11/12 remains admitted to medical floor, comfortable, awake, following commands, feels weak, hemodynamically stable, afebrile, saturating normal on room air. Patient comes surgical standpoint to be discharged home and follow up in two weeks. NATALIIA drain to be removed at less than 40 mL in 24 hour. Continue IV antibiotics per ID recommendations. 11/13 patient is seen and examined at bedside, discussed with the RN, no acute events overnight, patient is hemodynamically stable, afebrile, saturating normal on room air. Minimal output through NATALIIA drain, okay to be removed from surgical standpoint per discussion with the RN. Patient cleared to be discharged from surgical and ID standpoint. 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 Patient agreed with the plan and understood the information provided. Home Medications: Discontinued Scripts Loratadine/Pseudoephedrine (Loratadine-D 12 Hour Tablet) 5 Mg-120 Mg Tab.er.12h, 1 TAB PO BID for 5 Days, #10 TAB 0 Refills Prov:SHANNON CRAIG MD 01/31/25 Fluticasone Propionate (Flonase Nasal [place]) 50 Mcg/Actuation [place], 2 SPRAY NS DAILY, #16 GM 0 Refills Prov:SHANNON CRAIG MD 01/31/25 Metoclopramide HCl (Reglan) 10 Mg Tablet, 10 MG PO TIDP, #20 TAB 0 Refills Prov:LAUREEN PACHECO MD 11/12/21 Ondansetron (Ondansetron Odt) 4 Mg Tab.rapdis, 4 MG PO Q6HPRN, #20 TAB 0 Refills Prov:LAUREEN PACHECO MD 11/12/21 Pantoprazole Sodium (Protonix) 40 Mg Tablet.dr, 40 MG PO DAILY, #10 TAB 0 Refills Prov:LAUREEN PACHECO MD 11/12/21 Dicyclomine HCl (Bentyl) 20 Mg Tab, 20 MG PO Q6HPRN, #20 TAB 0 Refills Prov:LAUREEN PACHECO MD 11/12/21 Time spent arranging discharge: 31-60 minutes SUSAN WAGNER MD Nov 13, 2025 14:42
--- NOTE | 2025-11-13 14:58 | NUR ---
NATALIIA DRAIN REMOVED PER MD ORDER, TUP INTACT. PT JULIOCESAR WELL.
--- NOTE | 2025-11-13 16:00 | NUR ---
PT WAS DC'D HOME PER MD ORDER. PT WAS INSTRUCTED TO F/U WITH DR KNOX AND PROVIDED WITH A F/U APPT. PT VOICED UNDERSTANDING. PT MOTHER AT BEDSIDE. PT WAS TOLD IF AY ISSUES OR CONCERNS TO CALL DR KNOX OFFICE, STATED UNDERSTANDING. PT WAS ALSO PROVIDED WITH RX FOR ABX FROM DR RAMIREZ AND INSTRUCTED TO FACE AND FILL PACKER PAIN MED FROM PT PHARMACY. STATED UNDERSTANDING. IV REMOVED, TIP INTACT. PT WHEELED DOWN TO MAURICIO
== END 2025-11-13 15:12 | disposition home or self-care (01) | DRG 853 ==
LOC: EDH 10:11 → EDHIP 10:12 → UNDOADMIN 13:44 → 3CH 19:30
PROVIDERS: ADMIT Internal Medicine; ATTEND Internal Medicine
PROC: 0DTJ4ZZ Resection of Appendix, Percutaneous Endoscopic Approach (ICD-10-PCS; principal; 2025-11-07 16:45)
PROC: 05HB33Z Insertion of Infusion Device into Right Basilic Vein, Percutaneous Approach (ICD-10-PCS; 2025-11-10)
PROC: B54MZZA Ultrasonography of Right Upper Extremity Veins, Guidance (ICD-10-PCS; 2025-11-10)
DX: A41.9 Sepsis, unspecified organism (principal); K35.33 Acute appendicitis with perforation, localized peritonitis, and gangrene, with abscess; B96.20 Unspecified Escherichia coli [E. coli] as the cause of diseases classified elsewhere; I10 Essential (primary) hypertension; E66.01 Morbid (severe) obesity due to excess calories; Z68.41 Body mass index [BMI] 40.0-44.9, adult
CPT/HCPCS: 36415; 36556; 74177; 80048; 80053; 81001; 83036; 83605; 83735; 84703; 85025; 85027; 85610; 85730; 86140; 87040; 87070; 87076; 87086; 87186; 88304; 96374; 96375; 99285; A4450; C1894; G0378; J0330; J0690; J1450; J1885; J2250; J2270; J2371; J2405; J2543; J2704; J2765; J3010; J3475; J3490; J7030; J7120; Q9967; A4649; A4930; C1750; C1769; J0665; J1308